=== PATIENT | male | born 1945 | race Caucasian/White ===

== ENCOUNTER 2018-01-20 12:08 | Inpatient (IN) ==
[2018-01-20 13:40] LABS: Bilirubin,Urine Negative (Negative); Clarity,Urine Clear (Clear); Color,Urine Yellow (Yellow); Glucose,Urine (UA) Normal (Normal); Ketones,Urine Negative (Negative); Leukocyte Esterase,Urine Negative (Negative); Nitrite,Urine Negative (Negative); Protein,Urine Negative (Neg-Trace); Specific Gravity,Urine 1.015 (1.010-1.025); Urobilinogen,Urine Normal (Normal)
[2018-01-20 13:41] LABS: Blood,Urine Negative (Negative)
[2018-01-20] MEDS ORDERED: *HR* OxyCODONE Immed Rel 5 MG TABLET PO PRN (18:00)
--- NOTE | 2018-01-20 18:42 | Internal Med History&Physical ---
Date of Encounter: 01/21/18 Time of Encounter: 19:40 Assessment and Plan (1) Status post total hip replacement, right Current visit: Yes Status: Acute here for pt, rt, ot (2) HTN (hypertension) Current visit: Yes Status: Acute he did have some hypotension at [place], will continue to follow. may need to adjust medication. 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 Current visit: Yes Status: Acute will continue with home medication Qualifiers: Associated angina: without angina Qualified Code(s): I25.811 - Atherosclerosis of [place] coronary artery of transplanted heart without angina pectoris (5) Gout Current visit: Yes Status: Acute will continue allopurinol Qualifiers: Gout site: unspecified site Gout etiology: unspecified cause Chronicity: chronic Presence of tophus: without tophus Qualified Code(s): M1A.9XX0 - Chronic gout, unspecified, without tophus (tophi) (6) Inflammatory arthritis Current visit: Yes Status: Acute will continue his home medication. he takes prednisone daily for this will watch for signs of adrenal insuffiency (7) GERD (gastroesophageal reflux disease) Current visit: Yes Status: Acute will continue ppi Qualifiers: Esophagitis presence: esophagitis presence not specified Qualified Code(s) : K21.9 - Gastro-esophageal reflux disease without esophagitis (8) CHF (congestive heart failure) Current visit: Yes Status: Acute will continue home medication. bnp in am he does have pretty significant edema of his lower extremity will obtain a Doppler tomorrow. Qualifiers: Heart failure type: diastolic Heart failure chronicity: chronic Qualified Code(s): I50.32 - Chronic diastolic (congestive) heart failure (9) Sacral decubitus ulcer, stage II Current visit: Yes Status: Acute will dresss this with allevan continue to follow (10) Code status needs review Current visit: Yes Status: Acute He does not want to be full code he is very upset about what happened to his when she had intubated prior to her . He does have a living will have a signed copy she does not want to be intubated he does not want CPR. Internal Medicine - H&P: HPI Chief complaint: here for rehab Admitted From: Direct Admit Plans for Post Hospital Care: Home History of present illness: Mr. Guzmán is a 72 year old male who presents [facility] after he had a right THR for inflammatory arthritis. he is here for pt/ot/rt. plan is to get him back to his home environment. he did have some hypotension prior to admission. his lisinopril was held. on admission here he was on 2 betablockers. will d.c the propanolol. he is on chronic daily prednisone. his bp is better today if low will consider stress dose steroids. He is feeling pretty good he does not have any pain he has not had have any pain medicines since Wednesday morning. He got up to the bathroom had a normal bowel movement does not have any trouble with his balance is not had any nausea or vomiting he has not been dizzy has not been short of breath and forward to getting home. He did have a lengthy discussion about CODE STATUS with he relates a story about his who had a living will and she ended up on a ventilator and she did want to be on the ventilator discussed the difference between the living will and DNR status and he states he does not want CPR he does not want to be intubated and that he has a living will. I discussed the living will is not CODE STATUS is he states he wants to be DNR CC arrest. Past Med Surg Social Fam HX - Past Medical History Medical history: arthritis, CHF, coronary artery disease (History of coronary angioplasty history of CABG, pacer), hyperlipidemia, myocardial infarction, valvular heart disease (AICD, ischemic cardiomyopathy, GOut, chronic back pain, BPH), other (AICD, ischemic cardiomyopathy, ventricular tachycardia, chronic back pain, gout, ED, urge incontinence, BPH,) Additional medical history: gout, tremors, [place] CAD, gerd, BPH Psychiatric history: no psych history - Past Surgical History Surgical History: non-contributory, angioplasty/stent, coronary bypass (CABG) ( 1994), orthopedic, other (Right total hip replacement 2017 carpal tunnel on the left 2 times carpal tunnel on the right x 2, 3 left knee surgeries, back surgery 1985 coccyx removed in 1963, eye surgery 2015), pacemaker/AICD ( Defibrillator 1989 1994), AICD Additional surgical history: back stimulator, back surgery - Social History Smoking Status: Never smoker Smokeless Tobacco Status: No Alcohol use: rarely Drug use: none - Family History Father Living Status: Age at : 45 Hx Family Cardiac Disorders: Yes Hx Family Cancer: Yes Mother Living Status: Age at : 52 Hx Family Cancer: Yes Internal Medicine - H&P: Meds Lisinopril [Zestril] 10 mg PO DAILY 04/29/16 [History] Multivit/Iron/FA/K/Herb No.244 [Alive [employer] Mv Tablet] 1 tab PO DAILY 04/29/16 [History] Pravastatin Sodium [Pravachol] 40 mg PO HS 04/29/16 [History] Allopurinol [Zyloprim 300 MG] 300 mg PO DAILY 11/03/17 [History] Carvedilol 12.5 mg PO BID 11/03/17 [History] Fenofibrate Nanocrystallized [Tricor] 145 mg PO DAILY 11/03/17 [History] Finasteride [Proscar] 5 mg PO DAILY 11/03/17 [History] Shorter-3/Dha/Epa/Fish Oil [Fish Oil 1,000 mg Softgel] 1 tab PO DAILY 11/03/17 [ History] Omeprazole [PriLOSEC] 40 mg PO DAILY 11/03/17 [History] Tamsulosin [Flomax] 0.4 mg PO DAILY 11/03/17 [History] Tofacitinib Citrate [Xeljanz Xr] 11 mg PO DAILY 11/03/17 [History] predniSONE [PredniSONE] 5 mg PO DAILY 11/03/17 [History] sulfaSALAzine [Sulfasalazine] 500 mg PO BID 11/03/17 [History] 3 Allergy/AdvReac Type Severity Reaction Status Date / Time No Known Allergies Allergy Verified 11/03/17 06:49 All Systems PM: A 10-system review of systems was performed and is negative for pertinent findings except as documented above in the HPI. - Constitutional Constitutional: fatigue, no excessive sweating, no fever(s), no falls, no weakness - EENT Eyes: no change in vision Nose, mouth and throat: no sore throat - Cardiovascular Cardiovascular ROS IM: no chest pain, no dyspnea, no lightheadedness, no palpitations, no syncope - Respiratory Respiratory: no cough, no dyspnea on exertion, no wheezing - Gastrointestinal Gastrointestinal: no abdominal pain, no constipation, no diarrhea, no hematemesis, no loose stools, no melena, no nausea, no vomiting - Genitourinary Genitourinary ROS male: no dysuria, no hematuria, no urinary incontinence - Musculoskeletal Musculoskeletal ROS IM: numbness (Except chronic of his first 3 digits on the right hand) - Integumentary Integumentary IM: skin ulcer (There is a skin tear on his right thigh), no pruritus, no rash - Neurological Neurological ROS: tremor(s) - Psychiatric Psychiatric: no depression - Constitutional Vitals: Temp Pulse Resp BP Pulse Ox 98 F 75 15 121/66 99 01/20/18 13:02 01/20/18 13:05 01/20/18 13:05 01/20/18 13:05 01/20/18 13:05 General appearance: Present: A&O X 3, answers questions appropriately. Absent: no acute distress - Head Head exam: Present: atraumatic - Neck Neck exam general surgery: Present: supple, trachea midline. Absent: lymphadenopathy, tenderness - Respiratory Respiratory exam: Present: CTAB - Cardiovascular Cardiovascular exam: Present: RRR, +S1, +S2. Absent: systolic murmur - GI/Abdominal GI/Abdominal exam: Present: normal bowel sounds, soft, no peritoneal signs. Absent: distended, guarding, mass, rebound, tenderness - Extremities Exam Extremities exam: Present: normal capillary refill, pedal edema (Right greater than left), warm - Incison Incision: Present: clean and dry, intact (Of a skin tear just parallel to his incision was about 5 cm long. There is a significant amount of serosanguineous and the little bit of bloody drainage coming from that. There is no erythema. ) - Skin Skin exam: Present: dry (He does have a sacral decub on his buttock were just the skin has split little bit in his gluteal cleft.), warm. Absent: rash Internal Med - H&P Results - Labs CBC & Chem 7: 01/21/18 05:05 01/21/18 05:05 Labs: Urine 01/20/18 Range/Units 13:30 Urine Color Yellow (Yellow) Urine Clarity Clear (Clear) Urine pH 6.0 (5.0-8.0) pH Units Ur Specific [place] 1.015 (1.010-1.025) Urine Protein Negative (Neg-Trace) mg/dL Urine Glucose (UA) Normal (Normal) mg/dL
[2018-01-20] MEDS: sulfaSALAzine 500 MG TABLET PO SCH (21:42)
[2018-01-21] MEDS ORDERED: Ondansetron ODT 4 MG TAB.RAPDIS ONE (03:48)
[2018-01-21] MEDS: *HR* Enoxaparin 40 MG/0.4 ML SYRINGE SQ SCH (06:40)
[2018-01-21] MEDS: predniSONE 5 MG TABLET PO SCH (08:30)
[2018-01-21] MEDS: Aspirin 81 MG TAB.CHEW PO SCH (08:30)
[2018-01-21] MEDS: Multivit/Ca/Min/Fe/FA 1 TAB TABLET PO SCH (08:30)
[2018-01-21] MEDS: Finasteride 5 MG TABLET PO SCH (08:30)
[2018-01-21] MEDS: Fenofibrate 54 MG TABLET PO SCH (08:30)
[2018-01-21] MEDS: Furosemide 40 MG TABLET PO SCH (08:30)
[2018-01-21] MEDS: sulfaSALAzine 500 MG TABLET PO SCH ×2 (08:30→19:54)
[2018-01-21] MEDS: *HR* OxyCODONE Immed Rel 5 MG TABLET PO PRN ×2 (09:00→19:54)
[2018-01-21] MEDS ORDERED: Lisinopril 20 MG TABLET PO SCH (09:00)
[2018-01-21] MEDS: (Omega-3/Dha/Epa/Fish Oil [Fish Oil 1,000 Mg Softgel] PO SCH (11:37)
[2018-01-21] MEDS: (Tofacitinib Citrate [Xeljanz Xr] 11 MG) PO SCH (11:38)
[2018-01-21 13:51] LABS: Basophils % 0.6 %; Eosinophils # 0.1 K/mcL (0.0-0.6); Eosinophils % 1.1 %; Hematocrit 25.6 % (37.5-50.1); Hemoglobin 8.8 g/dL (12.9-16.9); Immature Granulocytes % 0.7 % (0-4); Lymphocytes # 0.8 K/mcL (0.6-4.6); Lymphocytes % 15.3 %; Mean Corpuscular HGB Conc 34.4 g/dL (31.6-35.5); Mean Corpuscular Hemoglobin 35.2 pg (28.0-33.3); Mean Corpuscular Volume 102.4 fL (83.0-100.0); Mean Platelet Volume 10.1 fL (9.4-12.4); Monocytes # 0.9 K/mcL (0.0-1.3); Monocytes % 16.2 %; Neutrophils # 3.6 K/mcL (1.6-8.9); Platelet Count 157 K/mcL (140-400); Red Cell Distribution Width 13.9 % (11.5-14.5); Segmented Neutrophils % 66.1 %
[2018-01-21 13:52] LABS: BUN/Creatinine Ratio 30 (6-26); Blood Urea Nitrogen 25 mg/dL (8-23); Carbon Dioxide 24 mEq/L (23-29); Chloride 104 mEq/L (98-107); Glucose 122 mg/dL (70-105); Osmolality,Calculated 286 (280-300); Potassium 3.4 mEq/L (3.5-5.1); Sodium 135 mEq/L (136-145); eGFR For African Americans > 60 (> 60); eGFR For Non-African Americans > 60 (> 60)
[2018-01-21 13:53] LABS: Calcium 8.7 mg/dL (8.6-10.3)
--- NOTE | 2018-01-21 15:30 | Internal Med Progress Note ---
Date of Encounter: 01/21/18 Time of Encounter: 08:20 - Assessment and plan (1) Status post total hip replacement, right Current Visit: Yes Status: Acute Assessment and plan: He is here for rehabilitation physical therapy occupational therapy and recreational therapy. (2) HTN (hypertension) Current Visit: Yes Status: Acute Assessment and plan: It was low at the outside hospital his home medicines up and started it did get low again so we will put him back off the lisinopril. 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 Qualifiers: Associated angina: without angina Qualified Code(s): I25.811 - Atherosclerosis of [place] coronary artery of transplanted heart without angina pectoris (5) Gout Current Visit: Yes Status: Acute Assessment and plan: He does not have any active gout currently. continue allopurinoll Qualifiers: Gout site: unspecified site Gout etiology: unspecified cause Chronicity: chronic Presence of tophus: without tophus Qualified Code(s): M1A.9XX0 - Chronic gout, unspecified, without tophus (tophi) (6) Inflammatory arthritis Current Visit: Yes Status: Acute Assessment and plan: Continue his home medicine his home dose of prednisone. (7) GERD (gastroesophageal reflux disease) Current Visit: Yes Status: Acute Assessment and plan: Continue his PPI Qualifiers: Esophagitis presence: esophagitis presence not specified Qualified Code(s) : K21.9 - Gastro-esophageal reflux disease without esophagitis (8) CHF (congestive heart failure) Current Visit: Yes Status: Acute Assessment and plan: His BNP was not significantly elevated he is starting on Lasix and AMBER inhibitor or beta joshua will continue these. As his blood pressure tolerates currently other than the edema not having any symptoms of CHF. But his edema has been present for a long time Qualifiers: Heart failure type: diastolic Heart failure chronicity: chronic Qualified Code(s): I50.32 - Chronic diastolic (congestive) heart failure (9) Nausea Current Visit: Yes Status: Acute Assessment and plan: He did receive his a Zofran dose which did not provide him any significant relief. He has not had narcotics in 48 hours a thinking that this is most likely cause for his nausea for his headache. We will continue to monitor this. Discussed that these symptoms peak at 72 hours. He is currently cardiovascularly stable. He does not have an acute abdomen his urinalysis looked negative he does not have any current cardiac symptoms will continue to monitor this and provide supportive care. - Subjective Interval history: He is having a good bit of nausea that started early this morning. He did eat his for breakfast he has not had any emesis he did get a dose of Zofran which she did not seem to feel helped him very much. He has had a headache just is not feeling up to par he has not had any diarrhea he has not had any belly pain he denies chest pain he denies shortness of breath. He does not have any pain in his hip. He has last dose of narcotics was on Wednesday prior to arriving here he has about 48 hours from his last narcotic he was taking oxycodone on a regular basis prior to coming in. But he has declined its use since he no longer has hip pain. Denies dysuria or urinary frequency or incontinence. - Constitutional Vitals: Temp Pulse Resp BP Pulse Ox 98.3 F 78 16 123/78 95 01/21/18 07:00 01/21/18 07:00 01/21/18 07:00 01/21/18 07:00 01/21/18 07:00 General appearance: Present: A&O X 3, answers questions appropriately. Absent: no acute distress (Appear mildly ill) - Head Head exam: Present: atraumatic, normocephalic - Neck Neck exam general surgery: Present: supple, trachea midline. Absent: lymphadenopathy, tenderness - Respiratory Respiratory exam: Present: CTAB - Cardiovascular Cardiovascular exam: Present: RRR, +S1, +S2. Absent: systolic murmur - GI/Abdominal GI/Abdominal exam: Present: normal bowel sounds, soft. Absent: distended, guarding, mass, tenderness, no peritoneal signs - Extremities Exam Extremities exam: Present: normal capillary refill, pedal edema (Right Foot greater than left foot), warm. Absent: mottling - Incison Incision: Present: clean and dry, intact. Absent: erythema (He does have a skin tear that is still having a lot of serosanguineous drainage from both low his incision. There is no erythema of the area no purulent drainage) - Skin Skin exam: Present: dry, warm. Absent: rash Internal Medicine: Result - Labs CBC & Chem 7: 01/21/18 05:05 01/21/18 05:05 Labs: Short CBC 01/21/18 Range/Units 05:05 WBC 5.4 (4.3-11.1) K/mcL Hgb 8.8 L (12.9-16.9) g/dL Hct 25.6 L (37.5-50.1) % Plt Count 157 (140-400) K/mcL Neutrophils # 3.6 (1.6-8.9) K/mcL BMP 01/21/18 05:05 Sodium 135 L Potassium 3.4 L Chloride 104 Carbon Dioxide 24 BUN 25 H Creatinine 0.83 Glucose 122 H Calcium 8.7 - VTE Documentation of Mechanical Device: Graduated compression elastic hosiery Consult Discharge Plan - Plan Referrals: Gely Stringer, GROUP ART SUPERVISOR [Primary Care Provider] -
[2018-01-21] MEDS ORDERED: predniSONE 20 MG TABLET PO ONE (15:33)
[2018-01-22 05:34] LABS: Basophils % 0.2 %; Hematocrit 25.8 % (37.5-50.1); Hemoglobin 8.8 g/dL (12.9-16.9); Lymphocytes # 0.6 K/mcL (0.6-4.6); Lymphocytes % 9.8 %; Mean Corpuscular HGB Conc 34.1 g/dL (31.6-35.5); Mean Corpuscular Hemoglobin 35.1 pg (28.0-33.3); Mean Corpuscular Volume 102.8 fL (83.0-100.0); Mean Platelet Volume 9.7 fL (9.4-12.4); Monocytes # 0.7 K/mcL (0.0-1.3); Monocytes % 12.2 %; Neutrophils # 4.5 K/mcL (1.6-8.9); Platelet Count 186 K/mcL (140-400); Red Blood Count 2.51 M/mcL (4.19-5.50); Red Cell Distribution Width 13.9 % (11.5-14.5); Segmented Neutrophils % 76.8 %
[2018-01-22 05:47] LABS: BUN/Creatinine Ratio 29 (6-26); Blood Urea Nitrogen 27 mg/dL (8-23); Calcium 8.8 mg/dL (8.6-10.3); Carbon Dioxide 26 mEq/L (23-29); Chloride 103 mEq/L (98-107); Glucose 140 mg/dL (70-105); Osmolality,Calculated 291 (280-300); Potassium 3.9 mEq/L (3.5-5.1); Sodium 137 mEq/L (136-145); eGFR For African Americans > 60 (> 60); eGFR For Non-African Americans > 60 (> 60)
[2018-01-22] MEDS: *HR* Enoxaparin 40 MG/0.4 ML SYRINGE SQ SCH (06:04)
[2018-01-22] MEDS: predniSONE 5 MG TABLET PO SCH (08:26)
[2018-01-22] MEDS: Finasteride 5 MG TABLET PO SCH (08:26)
[2018-01-22] MEDS: Multivit/Ca/Min/Fe/FA 1 TAB TABLET PO SCH (08:26)
[2018-01-22] MEDS: Fenofibrate 54 MG TABLET PO SCH (08:26)
[2018-01-22] MEDS: sulfaSALAzine 500 MG TABLET PO SCH ×2 (08:26→21:44)
[2018-01-22] MEDS: Furosemide 40 MG TABLET PO SCH (08:26)
[2018-01-22] MEDS: Aspirin 81 MG TAB.CHEW PO SCH (08:32)
[2018-01-22] MEDS: (Omega-3/Dha/Epa/Fish Oil [Fish Oil 1,000 Mg Softgel] PO SCH (08:34)
[2018-01-22] MEDS: (Tofacitinib Citrate [Xeljanz Xr] 11 MG) PO SCH (08:35)
--- NOTE | 2018-01-22 13:29 | Internal Med Progress Note ---
Date of Encounter: 01/22/18 Time of Encounter: 13:27 - Assessment and plan (1) Status post total hip replacement, right Current Visit: Yes Status: Acute Assessment and plan: He is here for rehabilitation physical therapy occupational therapy and recreational therapy. (2) HTN (hypertension) Current Visit: Yes Status: Acute Assessment and plan: It was low it is better with holding the lisinopril will continue to follow. 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 Qualifiers: Associated angina: without angina Qualified Code(s): I25.811 - Atherosclerosis of [place] coronary artery of transplanted heart without angina pectoris (5) Gout Current Visit: Yes Status: Acute Assessment and plan: He does not have any active gout currently. continue allopurinoll Qualifiers: Gout site: unspecified site Gout etiology: unspecified cause Chronicity: chronic Presence of tophus: without tophus Qualified Code(s): M1A.9XX0 - Chronic gout, unspecified, without tophus (tophi) (6) Inflammatory arthritis Current Visit: Yes Status: Acute Assessment and plan: Continue his home medicine his home dose of prednisone.he did get an extra dose of 60 yesterday (7) GERD (gastroesophageal reflux disease) Current Visit: Yes Status: Acute Assessment and plan: Continue his PPI Qualifiers: Esophagitis presence: esophagitis presence not specified Qualified Code(s) : K21.9 - Gastro-esophageal reflux disease without esophagitis (8) CHF (congestive heart failure) Current Visit: Yes Status: Acute Assessment and plan: His BNP was not significantly elevated he is currently on Lasix and beta joshua will continue these. As his blood pressure tolerates currently other than the edema not having any symptoms of CHF. But his edema has been present for a long time. had to hold the acei due to low bp Qualifiers: Heart failure type: diastolic Heart failure chronicity: chronic Qualified Code(s): I50.32 - Chronic diastolic (congestive) heart failure (9) Sacral decubitus ulcer, stage II Current Visit: Yes Status: Acute (10) Code status needs review Current Visit: Yes Status: Acute - Subjective Interval history: he has not had the nausea that he was having yesterday he has not had any diarrhea he has not had any belly pain he denies chest pain he denies shortness of breath. He does not have any pain in his hip. he did have some oxycodone yesterday for his headache. took a shower today Denies dysuria or urinary frequency or incontinence. - Constitutional Vitals: Temp Pulse Resp BP Pulse Ox 98.4 F 74 16 104/69 98 01/22/18 07:47 01/22/18 07:47 01/22/18 07:47 01/22/18 07:47 01/22/18 07:47 General appearance: Present: A&O X 3, answers questions appropriately. Absent: no acute distress - Head Head exam: Present: atraumatic, normocephalic - Neck Neck exam general surgery: Present: normal inspection, supple, trachea midline. Absent: lymphadenopathy - Respiratory Respiratory exam: Present: CTAB - Cardiovascular Cardiovascular exam: Present: RRR, +S1, +S2. Absent: systolic murmur - GI/Abdominal GI/Abdominal exam: Present: normal bowel sounds, soft, no peritoneal signs. Absent: distended, guarding, tenderness - Extremities Exam Extremities exam: Present: pedal edema. Absent: cyanotic - Incison Incision: Present: clean and dry, intact (skin rear posterior to the incision) - Skin Skin exam: Present: dry, warm. Absent: rash Internal Medicine: Result - Labs CBC & Chem 7: 01/22/18 05:10 01/22/18 05:10 Labs: Short CBC 01/21/18 01/22/18 Range/Units 05:05 05:10 WBC 5.4 5.9 (4.3-11.1) K/mcL Hgb 8.8 L 8.8 L (12.9-16.9) g/dL Hct 25.6 L 25.8 L (37.5-50.1) % Plt Count 157 186 (140-400) K/mcL Neutrophils # 3.6 4.5 (1.6-8.9) K/mcL BMP 01/21/18 01/22/18 05:05 05:10 Sodium 135 L 137 Potassium 3.4 L 3.9 Chloride 104 103 Carbon Dioxide 24 26 BUN 25 H 27 H Creatinine 0.83 0.94 Glucose 122 H 140 H Calcium 8.7 8.8 - VTE Documentation of Mechanical Device: Graduated compression elastic hosiery Consult Discharge Plan - Plan Referrals: Gely Stringer, CHECK GRADER [Primary Care Provider] -
[2018-01-23] MEDS: *HR* Enoxaparin 40 MG/0.4 ML SYRINGE SQ SCH (05:58)
[2018-01-23] MEDS: sulfaSALAzine 500 MG TABLET PO SCH ×2 (08:53→22:47)
[2018-01-23] MEDS: Furosemide 40 MG TABLET PO SCH (08:53)
[2018-01-23] MEDS: predniSONE 5 MG TABLET PO SCH (08:53)
[2018-01-23] MEDS: Aspirin 81 MG TAB.CHEW PO SCH (08:53)
[2018-01-23] MEDS: Fenofibrate 54 MG TABLET PO SCH (08:53)
[2018-01-23] MEDS: (Omega-3/Dha/Epa/Fish Oil [Fish Oil 1,000 Mg Softgel] PO SCH (08:54)
[2018-01-23] MEDS: Finasteride 5 MG TABLET PO SCH (08:54)
[2018-01-23] MEDS: Multivit/Ca/Min/Fe/FA 1 TAB TABLET PO SCH (08:54)
[2018-01-23] MEDS: (Tofacitinib Citrate [Xeljanz Xr] 11 MG) PO SCH (08:54)
--- NOTE | 2018-01-23 11:53 | Internal Med Progress Note ---
Date of Encounter: 01/24/18 Time of Encounter: 11:51 - Assessment and plan (1) Status post total hip replacement, right Current Visit: Yes Status: Acute Assessment and plan: He is here for rehabilitation physical therapy occupational therapy and recreational therapy. (2) HTN (hypertension) Current Visit: Yes Status: Acute Assessment and plan: It was low it is better with holding the lisinopril will continue to follow. 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 Qualifiers: Associated angina: without angina Qualified Code(s): I25.811 - Atherosclerosis of [place] coronary artery of transplanted heart without angina pectoris (5) Gout Current Visit: Yes Status: Acute Assessment and plan: He does not have any active gout currently. continue allopurinoll Qualifiers: Gout site: unspecified site Gout etiology: unspecified cause Chronicity: chronic Presence of tophus: without tophus Qualified Code(s): M1A.9XX0 - Chronic gout, unspecified, without tophus (tophi) (6) Inflammatory arthritis Current Visit: Yes Status: Acute Assessment and plan: Continue his home medicine his home dose of prednisone.he did get an extra dose of 60 yesterday (7) GERD (gastroesophageal reflux disease) Current Visit: Yes Status: Acute Assessment and plan: Continue his PPI Qualifiers: Esophagitis presence: esophagitis presence not specified Qualified Code(s) : K21.9 - Gastro-esophageal reflux disease without esophagitis (8) CHF (congestive heart failure) Current Visit: Yes Status: Acute Assessment and plan: His BNP was not significantly elevated he is currently on Lasix and beta joshua will continue these. As his blood pressure tolerates currently other than the edema not having any symptoms of CHF. But his edema has been present for a long time. had to hold the acei due to low bp Qualifiers: Heart failure type: diastolic Heart failure chronicity: chronic Qualified Code(s): I50.32 - Chronic diastolic (congestive) heart failure (9) Sacral decubitus ulcer, stage II Current Visit: Yes Status: Acute (10) Code status needs review Current Visit: Yes Status: Acute - Subjective Interval history: he has not had the nausea he has not had any belly pain he denies chest pain he denies shortness of breath. He does not have any pain in his hip. Denies dysuria or urinary frequency or incontinence.he does have diarrhea, started yesterday. - Constitutional Vitals: Temp Pulse Resp BP Pulse Ox 98.4 F 72 16 125/75 96 01/23/18 07:00 01/23/18 07:00 01/22/18 19:00 01/23/18 07:00 01/23/18 07:00 General appearance: Present: A&O X 3, answers questions appropriately. Absent: no acute distress Internal Medicine: Result - Labs CBC & Chem 7: 01/22/18 05:10 01/22/18 05:10 - VTE Documentation of Mechanical Device: Graduated compression elastic hosiery Consult Discharge Plan - Plan Referrals: Gely Stringer OY[employer] UNLOADER [Primary Care Provider] -
[2018-01-24] MEDS: *HR* Enoxaparin 40 MG/0.4 ML SYRINGE SQ SCH (06:55)
[2018-01-24] MEDS: sulfaSALAzine 500 MG TABLET PO SCH ×2 (08:20→20:20)
[2018-01-24] MEDS: Fenofibrate 54 MG TABLET PO SCH (08:20)
[2018-01-24] MEDS: Aspirin 81 MG TAB.CHEW PO SCH (08:20)
[2018-01-24] MEDS: Furosemide 40 MG TABLET PO SCH (08:21)
[2018-01-24] MEDS: predniSONE 5 MG TABLET PO SCH (08:21)
[2018-01-24] MEDS: Finasteride 5 MG TABLET PO SCH (08:21)
[2018-01-24] MEDS: Multivit/Ca/Min/Fe/FA 1 TAB TABLET PO SCH (08:21)
[2018-01-24] MEDS: (Omega-3/Dha/Epa/Fish Oil [Fish Oil 1,000 Mg Softgel] PO SCH (08:23)
[2018-01-24] MEDS: (Tofacitinib Citrate [Xeljanz Xr] 11 MG) PO SCH (08:23)
--- NOTE | 2018-01-24 12:45 | Internal Med Progress Note ---
Date of Encounter: 01/24/18 Time of Encounter: 12:45 - Assessment and plan (1) Status post total hip replacement, right Current Visit: Yes Status: Acute Assessment and plan: He is here for rehabilitation physical therapy occupational therapy and recreational therapy., he wants to get home will d/c when he meets goals. having diarrhea likely related to narcotic withdrawl (2) HTN (hypertension) Current Visit: Yes Status: Acute Assessment and plan: It was low it is better with holding the lisinopril will continue to follow. 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 Qualifiers: Associated angina: without angina Qualified Code(s): I25.811 - Atherosclerosis of [place] coronary artery of transplanted heart without angina pectoris (5) Gout Current Visit: Yes Status: Acute Assessment and plan: He does not have any active gout currently. continue allopurinoll Qualifiers: Gout site: unspecified site Gout etiology: unspecified cause Chronicity: chronic Presence of tophus: without tophus Qualified Code(s): M1A.9XX0 - Chronic gout, unspecified, without tophus (tophi) (6) Inflammatory arthritis Current Visit: Yes Status: Acute Assessment and plan: Continue his home medicine his home dose of prednisone.he did get an extra dose of 60 yesterday (7) GERD (gastroesophageal reflux disease) Current Visit: Yes Status: Acute Assessment and plan: Continue his PPI Qualifiers: Esophagitis presence: esophagitis presence not specified Qualified Code(s) : K21.9 - Gastro-esophageal reflux disease without esophagitis (8) CHF (congestive heart failure) Current Visit: Yes Status: Acute Assessment and plan: His BNP was not significantly elevated he is currently on Lasix and beta joshua will continue these. As his blood pressure tolerates currently other than the edema not having any symptoms of CHF. But his edema has been present for a long time. had to hold the acei due to low bp Qualifiers: Heart failure type: diastolic Heart failure chronicity: chronic Qualified Code(s): I50.32 - Chronic diastolic (congestive) heart failure (9) Sacral decubitus ulcer, stage II Current Visit: Yes Status: Acute (10) Code status needs review Current Visit: Yes Status: Acute - Subjective Interval history: he has not had the nausea he has not had any belly pain he denies chest pain he denies shortness of breath. He does not have any pain in his hip. Denies dysuria or urinary frequency or incontinence.he does have diarrhea he told me 10 to 11 times told the nures 5 to 6 times . documented 4 times since yesterday. tech said small amount. no abd pain he is anxious to go home - Constitutional Vitals: Temp Pulse Resp BP Pulse Ox 98.3 F 55 16 128/73 96 01/24/18 07:17 01/24/18 07:17 01/24/18 07:17 01/24/18 07:17 01/23/18 19:30 General appearance: Present: A&O X 3, answers questions appropriately. Absent: no acute distress - Head Head exam: Present: atraumatic, normocephalic - Neck Neck exam general surgery: Present: normal inspection, supple, trachea midline. Absent: lymphadenopathy - Respiratory Respiratory exam: Present: CTAB - Cardiovascular Cardiovascular exam: Present: RRR, +S1, +S2. Absent: systolic murmur - GI/Abdominal GI/Abdominal exam: Present: normal bowel sounds, soft, no peritoneal signs. Absent: distended, mass, tenderness - Extremities Exam Extremities exam: Present: pedal edema - Incison Incision: Present: clean and dry, intact (still with skin tean posterior to the incision still with blood and serosang d/c) Internal Medicine: Result - Labs CBC & Chem 7: 01/22/18 05:10 01/22/18 05:10 - VTE Documentation of Mechanical Device: Graduated compression elastic hosiery Consult Discharge Plan - Plan Referrals: Gely Stringer CNP [Primary Care Provider] -
[2018-01-25] MEDS: *HR* Enoxaparin 40 MG/0.4 ML SYRINGE SQ SCH (04:18)
[2018-01-25] MEDS: Fenofibrate 54 MG TABLET PO SCH (08:18)
[2018-01-25] MEDS: (Omega-3/Dha/Epa/Fish Oil [Fish Oil 1,000 Mg Softgel] PO SCH (08:19)
[2018-01-25] MEDS: Furosemide 40 MG TABLET PO SCH (08:19)
[2018-01-25] MEDS: Finasteride 5 MG TABLET PO SCH (08:19)
[2018-01-25] MEDS: sulfaSALAzine 500 MG TABLET PO SCH ×2 (08:19→19:43)
[2018-01-25] MEDS: predniSONE 5 MG TABLET PO SCH (08:19)
[2018-01-25] MEDS: Aspirin 81 MG TAB.CHEW PO SCH (08:19)
[2018-01-25] MEDS: Multivit/Ca/Min/Fe/FA 1 TAB TABLET PO SCH (08:19)
[2018-01-25] MEDS: (Tofacitinib Citrate [Xeljanz Xr] 11 MG) PO SCH (08:20)
[2018-01-25] MEDS: *HR* OxyCODONE Immed Rel 5 MG TABLET PO PRN (20:47)
[2018-01-26] MEDS: *HR* Enoxaparin 40 MG/0.4 ML SYRINGE SQ SCH (05:24)
[2018-01-26] MEDS: Fenofibrate 54 MG TABLET PO SCH (08:09)
[2018-01-26] MEDS: Multivit/Ca/Min/Fe/FA 1 TAB TABLET PO SCH (08:10)
[2018-01-26] MEDS: Aspirin 81 MG TAB.CHEW PO SCH (08:10)
[2018-01-26] MEDS: Furosemide 40 MG TABLET PO SCH (08:10)
[2018-01-26] MEDS: sulfaSALAzine 500 MG TABLET PO SCH ×2 (08:10→19:59)
[2018-01-26] MEDS: (Tofacitinib Citrate [Xeljanz Xr] 11 MG) PO SCH (08:11)
[2018-01-26] MEDS: predniSONE 5 MG TABLET PO SCH (08:11)
[2018-01-26] MEDS: Finasteride 5 MG TABLET PO SCH (08:11)
--- NOTE | 2018-01-26 13:56 | Internal Med Progress Note ---
Date of Encounter: 01/26/18 Time of Encounter: 13:54 - Assessment and plan (1) Status post total hip replacement, right Current Visit: Yes Status: Acute Assessment and plan: He is here for rehabilitation physical therapy occupational therapy and recreational therapy., he wants to get home will d/c when he meets goals. likely d/c tomorrow (2) HTN (hypertension) Current Visit: Yes Status: Acute Assessment and plan: It was low it is better with holding the lisinopril will continue to follow. 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 continue allopurinoll Qualifiers: Gout site: unspecified site Gout etiology: unspecified cause Chronicity: chronic Presence of tophus: without tophus Qualified Code(s): M1A.9XX0 - Chronic gout, unspecified, without tophus (tophi) (6) Inflammatory arthritis Current Visit: Yes Status: Acute Assessment and plan: Continue his home medicine his home dose of prednisone.he did get an extra dose of 60 yesterday (7) GERD (gastroesophageal reflux disease) Current Visit: Yes Status: Acute Assessment and plan: Continue his PPI Qualifiers: Esophagitis presence: esophagitis presence not specified Qualified Code(s) : K21.9 - Gastro-esophageal reflux disease without esophagitis (8) CHF (congestive heart failure) Current Visit: Yes Status: Acute Assessment and plan: His BNP was not significantly elevated he is currently on Lasix and beta joshua will continue these. As his blood pressure tolerates currently other than the edema not having any symptoms of CHF. But his edema has been present for a long time. had to hold the acei due to low bp Qualifiers: Heart failure type: diastolic Heart failure chronicity: chronic Qualified Code(s): I50.32 - Chronic diastolic (congestive) heart failure (9) Sacral decubitus ulcer, stage II Current Visit: Yes Status: Acute (10) Code status needs review Current Visit: Yes Status: Acute - Subjective Interval history: he has not had any belly pain he denies chest pain he denies shortness of breath. He does not have any pain in his hip. Denies dysuria or urinary frequency or incontinence.he ddenies diarrhea . . no abd pain he is anxious to go home - Constitutional Vitals: Temp Pulse Resp BP Pulse Ox 99.0 F 77 21 112/67 93 01/26/18 07:36 01/26/18 07:36 01/26/18 07:36 01/26/18 07:36 01/26/18 07:36 General appearance: Present: A&O X 3, answers questions appropriately. Absent: no acute distress - Head Head exam: Present: atraumatic, normocephalic - Neck Neck exam general surgery: Present: normal inspection, supple, trachea midline. Absent: lymphadenopathy - Respiratory Respiratory exam: Present: CTAB - Cardiovascular Cardiovascular exam: Present: RRR, +S1, +S2. Absent: systolic murmur - GI/Abdominal GI/Abdominal exam: Present: normal bowel sounds, soft, no peritoneal signs. Absent: distended, guarding - Extremities Exam Extremities exam: Present: normal capillary refill (anne winters), pedal edema - Incison Incision: Present: serosanguinous - Skin Skin exam: Present: dry, warm. Absent: rash Internal Medicine: Result - Labs CBC & Chem 7: 01/22/18 05:10 01/22/18 05:10 - VTE Documentation of Mechanical Device: Graduated compression elastic hosiery Consult Discharge Plan - Plan Referrals: Gely Stringer PSYCHOLOGICAL OPERATIONS OFFICER [Primary Care Provider] -
--- NOTE | 2018-01-26 14:03 | Discharge Summary ---
Date of Encounter: 01/27/18 Time of Encounter: 08:30 - Discharge Diagnosis (1) Status post total hip replacement, right Priority: Primary Status: Acute Comments: He was here for rehabilitation he saw PT OT physical medicine and rehabilitation to progress to medicine goals was felt safe to be discharged home with a walker. He was sent home in stable condition he will have home health as an outpatient with home physical therapy. 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 Qualifiers: Associated angina: without angina Qualified Code(s): I25.811 - Atherosclerosis of [place] coronary artery of transplanted heart without angina pectoris (5) Gout Priority: Secondary Status: Acute Comments: Not have any symptoms about this admission Qualifiers: Gout site: unspecified site Gout etiology: unspecified cause Chronicity: chronic Presence of tophus: without tophus Qualified Code(s): M1A.9XX0 - Chronic gout, unspecified, without tophus (tophi) (6) Inflammatory arthritis Priority: Secondary Status: Acute Comments: He remained on his home medications he does not have any flares of this this admission. (7) GERD (gastroesophageal reflux disease) Priority: Secondary Status: Acute Comments: He did not have any complaints with that this admission. Qualifiers: Esophagitis presence: esophagitis presence not specified Qualified Code(s) : K21.9 - Gastro-esophageal reflux disease without esophagitis (8) CHF (congestive heart failure) Priority: Secondary Status: Acute Comments: His legs remain quite swollen he is on diuretic. His blood pressure did not tolerate an AMBER inhibitor. He did see wound care they did schedule follow-up for possible home Unna boots Qualifiers: Heart failure type: diastolic Heart failure chronicity: chronic Qualified Code(s): I50.32 - Chronic diastolic (congestive) heart failure (9) Sacral decubitus ulcer, stage II Priority: Secondary Status: Acute Comments: The allevan was put on the day of discharge the skin was healed over it was only erythematous. (10) Code status needs review Priority: Secondary Status: Acute Comments: He was DNR at this admission he did not want to be intubated or have CPR due to a poor experience with his when she Hospital course: Mr. Guzmán is a 72 year old male Who came to the hospital for rehabilitation after he had a right total hip replacement. PT OT PMR was consult that he progressed met his goals he was felt safe to be at home he was walking with a walker he was doing his ADLs. He was does have a caregiver who lives with him. He was not having any pain he did not have pain medicines while he was here he was not sent home on any additional pain medication. He did have some low blood pressures when he is taking some vessel lisinopril this was held and his blood pressures remained stable. He did have some diarrhea the second day that he came to us this is about 72 hours after his last dose of narcotic pain medicine. He had been taking narcotic pain medicine on a regular basis prior to admission to the hospital after he had his hip replaced he did not have any pain and did not feel the further need for pain medicine he did have some nausea he did have some chills he did have some diarrhea after that. That did resolve by the time that he went home his bowels are working normally. He felt pretty good. He was sent home with any narcotic pain medicine. Also his Flexeril was weaned and he did not receive any hospital too - Time Spent with Patient Total time spent providing and/or coordinating discharge services: - Discharge Medications Home Medications: Multivit/Iron/FA/K/Herb No.244 [Alive [employer] Energy Mv Tablet] 1 tab PO DAILY 04/29/16 [History] Pravastatin Sodium [Pravachol] 40 mg PO HS 04/29/16 [History] Allopurinol [Zyloprim 300 MG] 300 mg PO DAILY 11/03/17 [History] Carvedilol 12.5 mg PO BID 11/03/17 [History] Fenofibrate Nanocrystallized [Tricor] 145 mg PO DAILY 11/03/17 [History] Finasteride [Proscar] 5 mg PO DAILY 11/03/17 [History] [place]-3/Dha/Epa/Fish Oil [Fish Oil 1,000 mg Softgel] 1 tab PO DAILY 11/03/17 [ History] Omeprazole [PriLOSEC] 40 mg PO DAILY 11/03/17 [History] Tamsulosin [Flomax] 0.4 mg PO DAILY 11/03/17 [History] Tofacitinib Citrate [Xeljanz Xr] 11 mg PO DAILY 11/03/17 [History] predniSONE [PredniSONE] 5 mg PO DAILY 11/03/17 [History] sulfaSALAzine [Sulfasalazine] 500 mg PO BID 11/03/17 [History] Aspirin 81 mg PO DAILY tab.chew 01/26/18 [Rx] Ferrous Sulfate 325 mg PO TIDWM tablet 01/26/18 [Rx] Furosemide [Lasix] 40 mg PO DAILY tablet 01/26/18 [Rx] Allergies/Adverse Reactions: 3 Allergy/AdvReac Type Severity Reaction Status Date / Time No Known Allergies Allergy Verified 11/03/17 06:49 Date of admission: 01/20/18 12:08 Primary care physician: Gely Stringer CNP Consults: 01/20/18 12:40 Consult to Occupational Therapy [CONS] Routine Comment: Evaluate, develop and implement POC Reason for Consult: eval Does patient have active BEDREST order?: Yes Is patient medically & hemodynamically stable?: No Consult to Physical Medicine/Rehab [CONS] Routine Reason for Consult: eval rtkr Time Notified: 12:42 Call Completed: Yes Consult to Physical Therapy [CONS] Routine Comment: Evaluate, develop and implement POC Reason for Consult: eval Does patient have active BEDREST order?: No Is patient medically & hemodynamically stable?: Yes Consult to Recreational Therapy [CONS] Routine Comment: Evaluate, develop and implement POC Consult to Pathology Technologist [CONS] Routine Reason for SW Consult: d/c planning 01/25/18 12:54 Consult to Wound Care [CONS] Routine Reason for Consult: bilateral unna boots d/t chronic BLE edema Time Notified: 13:00 Call Completed: Yes - Constitutional Vitals: Temp Pulse Resp BP Pulse Ox 99.0 F 77 21 112/67 93 01/26/18 07:36 01/26/18 07:36 01/26/18 07:36 01/26/18 07:36 01/26/18 07:36 General appearance: Present: A&O X 3, answers questions appropriately. Absent: no acute distress - Head Head exam: Present: atraumatic, normocephalic - Neck Neck exam general surgery: Present: normal inspection, supple, trachea midline. Absent: lymphadenopathy, tenderness - Respiratory Respiratory exam: Present: CTAB - Cardiovascular Cardiovascular exam: Present: RRR, +S1, +S2. Absent: systolic murmur - GI/Abdominal GI/Abdominal exam: Present: normal bowel sounds, soft, no peritoneal signs. Absent: distended, guarding, mass - Extremities Exam Extremities exam: Present: pedal edema, warm. Absent: mottling - Incison Incision: Present: clean and dry (but does have the skin tearposterior to the incision still with serosang d/c) - Skin Skin exam: Present: dry (sacral decub healing with allevan. skin intact now just mild redness), rash, warm - Patient Status Disposition: Home Health Service Condition: Good Functional capacity at discharge: uses cane/walker Overall status at discharge: patient is progressing back to baseline - Discharge Instructions Instructions: Heart Failure (DC), Chronic Hypertension (DC) Follow Up With: Beth Allen MD [Partnered Physician] - 02/03/18 3:00 pm Gely Stringer CNP [Primary Care Provider] - Abner Alvarado MD [Non-Partnered Physician] - 02/01/18 8:45 am - Diet and Activity Activity: ambulate only with your walker, as per physical therapy Diet: low fat, low cholesterol, low salt diet - VTE Documentation of Mechanical Device: Graduated compression elastic hosiery
[2018-01-26] MEDS: *HR* OxyCODONE Immed Rel 5 MG TABLET PO PRN (19:59)
--- NOTE | 2018-01-26 20:51 | Physcial Medicine-Consult Note ---
Date of Encounter: 01/26/18 Time of Encounter: 14:00 Physical Medicine - AP (1) Status post total hip replacement, right Status: Acute Assessment and plan: Good progress on rehab. Discharge planning. Code(s): Z96.641 - Presence of right artificial hip joint SNOMED Code(s): 958769165352 (2) Sacral decubitus ulcer, stage II Status: Acute Assessment and plan: Reenforced the importance of pressure relief and local care post discharge. Code(s): L89.152 - Pressure ulcer of sacral region, stage 2 SNOMED Code(s): 887720500 Physical Medicine - HPI - Data of Consult Requesting Physician: Beth Allen MD Primary Care Provider: Gely Stringer CNP - Consult Narrative History of present illness: Mr. Guzmán is a 72 year old RH male s/p elective right THR for OA. He has dine well on rehab unit. He knows his hip precautions. He is eating well and moving his bowels. He denies hip pain or distal RLE numbness. He feels steady on his walker. He is unable to sleep in a bed and uses a recliner here and at home prior. This is part of the reason for the stage 2 buttock gluteal cleft decubitus ulcer. He has a gel cushion at home. CC: Beth Allen MD Past Med Surg Social Fam HX - Past Medical History Attestation: Yes The following information was validated with the patient. Medical history: arthritis, CHF, coronary artery disease (History of coronary angioplasty history of CABG, pacer), hyperlipidemia, myocardial infarction, valvular heart disease (AICD, ischemic cardiomyopathy, GOut, chronic back pain, BPH), other (AICD, ischemic cardiomyopathy, ventricular tachycardia, chronic back pain, gout, ED, urge incontinence, BPH,) Additional medical history: gout, tremors, [place] CAD, gerd, BPH Psychiatric history: no psych history - Past Surgical History Surgical History: non-contributory, angioplasty/stent, coronary bypass (CABG) ( 1994), orthopedic, other (Right total hip replacement 2017 carpal tunnel on the left 2 times carpal tunnel on the right x 2, 3 left knee surgeries, back surgery 1985 coccyx removed in 1963, eye surgery 2015), pacemaker/AICD ( Defibrillator 1989 1994), AICD Additional surgical history: back stimulator, back surgery - Social History Smoking Status: Never smoker Smokeless Tobacco Status: No Alcohol use: rarely Drug use: none - Family History Father Living Status: Age at : 45 Hx Family Cardiac Disorders: Yes Hx Family Cancer: Yes Mother Living Status: Age at : 52 Hx Family Cancer: Yes Medications and Allergies Multivit/Iron/FA/K/Herb No.244 [Alive Women's Energy Mv Tablet] 1 tab PO DAILY 04/29/16 [History] Pravastatin Sodium [Pravachol] 40 mg PO HS 04/29/16 [History] Allopurinol [Zyloprim 300 MG] 300 mg PO DAILY 11/03/17 [History] Carvedilol 12.5 mg PO BID 11/03/17 [History] Fenofibrate Nanocrystallized [Tricor] 145 mg PO DAILY 11/03/17 [History] Finasteride [Proscar] 5 mg PO DAILY 11/03/17 [History] [place]-3/Dha/Epa/Fish Oil [Fish Oil 1,000 mg Softgel] 1 tab PO DAILY 11/03/17 [ History] Omeprazole [PriLOSEC] 40 mg PO DAILY 11/03/17 [History] Tamsulosin [Flomax] 0.4 mg PO DAILY 11/03/17 [History] Tofacitinib Citrate [Xeljanz Xr] 11 mg PO DAILY 11/03/17 [History] predniSONE [PredniSONE] 5 mg PO DAILY 11/03/17 [History] sulfaSALAzine [Sulfasalazine] 500 mg PO BID 11/03/17 [History] Aspirin 81 mg PO DAILY tab.chew 01/26/18 [Rx] Ferrous Sulfate 325 mg PO TIDWM tablet 01/26/18 [Rx] Furosemide [Lasix] 40 mg PO DAILY tablet 01/26/18 [Rx] 3 Allergy/AdvReac Type Severity Reaction Status Date / Time No Known Allergies Allergy Verified 11/03/17 06:49 All systems: reviewed and no additional remarkable complaints except as stated Physical Medicine - Exam - Constitutional Vitals: Temp Pulse Resp BP Pulse Ox 98.8 F 80 17 102/62 96 01/26/18 18:57 01/26/18 18:57 01/26/18 18:57 01/26/18 18:57 01/26/18 18:57 General appearance: average body habitus, cooperative, no acute distress - Head Head exam: Present: atraumatic, normocephalic - Eye Eye exam: Present: EOMI - ENT ENT exam: Present: mucous membranes moist, normal oropharynx - Neck Neck exam: Present: full ROM - Respiratory Respiratory exam: Present: CTAB - Cardiovascular Cardiovascular exam: Present: RRR - GI/Abdominal GI/Abdominal exam: Present: normal bowel sounds, soft - Extremities Exam Extremities exam: Absent: calf tenderness Additional comments: Right hip antigravity flexion - Neurological Exam Neurological exam: Present: alert, oriented X3, reflexes normal, strengths equal and symetr throughout. Absent: motor sensory deficit - Psychiatric Psychiatric exam: Present: normal affect, normal mood - Skin Additional comments: Right hip incision Physical Medicine - Results - Labs CBC & Chem 7: 01/22/18 05:10 01/22/18 05:10 Labs: Anemia Consult Discharge Plan - Plan Referrals: Beth Allen MD [Partnered Physician] - 02/03/18 3:00 pm Gely Stringer CNP [Primary Care Provider] -
[2018-01-27] MEDS: *HR* Enoxaparin 40 MG/0.4 ML SYRINGE SQ SCH (04:58)
[2018-01-27 07:28] VITALS: BP 121/66
[2018-01-27] MEDS: sulfaSALAzine 500 MG TABLET PO SCH (08:14)
[2018-01-27] MEDS: Finasteride 5 MG TABLET PO SCH (08:15)
[2018-01-27] MEDS: Fenofibrate 54 MG TABLET PO SCH (08:16)
[2018-01-27] MEDS: Aspirin 81 MG TAB.CHEW PO SCH (08:16)
[2018-01-27] MEDS: Furosemide 40 MG TABLET PO SCH (08:16)
[2018-01-27] MEDS: predniSONE 5 MG TABLET PO SCH (08:16)
[2018-01-27] MEDS: Multivit/Ca/Min/Fe/FA 1 TAB TABLET PO SCH (08:16)
[2018-01-27] MEDS: (Tofacitinib Citrate [Xeljanz Xr] 11 MG) PO SCH (08:17)
--- NOTE | 2018-01-27 08:41 | Physician Discharge Referral ---
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 For more information, call the [place] Tobacco Quit Line at 9-832-GHYVNOW. - Transfer Medications Home Medications: Multivit/Iron/FA/K/Herb No.244 [Alive Women's Energy Mv Tablet] 1 tab PO DAILY 04/29/16 [History] Pravastatin Sodium [Pravachol] 40 mg PO HS 04/29/16 [History] Allopurinol [Zyloprim 300 MG] 300 mg PO DAILY 11/03/17 [History] Carvedilol 12.5 mg PO BID 11/03/17 [History] Fenofibrate Nanocrystallized [Tricor] 145 mg PO DAILY 11/03/17 [History] Finasteride [Proscar] 5 mg PO DAILY 11/03/17 [History] [place]-3/Dha/Epa/Fish Oil [Fish Oil 1,000 mg Softgel] 1 tab PO DAILY 11/03/17 [ History] Omeprazole [PriLOSEC] 40 mg PO DAILY 11/03/17 [History] Tamsulosin [Flomax] 0.4 mg PO DAILY 11/03/17 [History] Tofacitinib Citrate [Xeljanz Xr] 11 mg PO DAILY 11/03/17 [History] predniSONE [PredniSONE] 5 mg PO DAILY 11/03/17 [History] sulfaSALAzine [Sulfasalazine] 500 mg PO BID 11/03/17 [History] Aspirin 81 mg PO DAILY tab.chew 01/26/18 [Rx] Ferrous Sulfate 325 mg PO TIDWM tablet 01/26/18 [Rx] Furosemide [Lasix] 40 mg PO DAILY tablet 01/26/18 [Rx] Allergies/Adverse Reactions: 3 Allergy/AdvReac Type Severity Reaction Status Date / Time No Known Allergies Allergy Verified 11/03/17 06:49 Certification: Further, I certify that my clinical findings support that this patient is homebound (i.e. absences from home require considerable and taxing effort and are for medical reasons or [facility] or infrequently or short duration when for other reasons) because: Homebound Reason: Patient requires assistance of a person or device to safely leave home (needs a walker after right hip replacement), Post-surgery restriction and or conditions limit ability to leave home (due to hip replacement) Attestation: My signature below is to certify that this patient is under my care and that I, or nurse practitioner, or a physician's assistant site manager working with me, has a face-to -face encounter with this patient.
== END 2018-01-27 11:35 | disposition home health service (06) | DRG 560 ==
LOC: INPGRE 12:08
PROVIDERS: ADMIT Family Medicine; ATTEND Family Medicine

== ENCOUNTER 2018-10-12 14:09 | Inpatient (IN) ==
[2018-10-13] MEDS ORDERED: Mag Hydrox/Al Hydrox/Simeth 30 ML UDC PO PRN (13:27)
[2018-10-13] MEDS ORDERED: Acetaminophen 325 MG TABLET PO PRN (13:27)
[2018-10-13] MEDS ORDERED: Ondansetron ODT 4 MG TAB.RAPDIS SL PRN (13:29)
--- NOTE | 2018-10-13 13:30 | Internal Med History&Physical ---
Addendum entered and electronically signed by Roger Green MD 10/13/18 14:23: I have personally performed a face to face evaluation on this patient. I have r eviewed and agree with the care plan. History and Exam by me shows: Patient is a 73-year-old white male status post left total knee replacement. He has done relatively well, postoperatively. Surgery was 10/10/2017. This was performed by Dr. Alvarado at [facility]. He denies complications. However, he has a feeling of diminished strength, especially since his surgery. Of note, he had foot drop prior but failed to get an AFO as prescribed. Apparently, his is picking up with the AFO on bringing it here, today. History and physical reviewed at length with patient. Outside and previous electronic records reviewed. Patient has no complaint of chest discomfort, dyspnea, orthopnea, breathing problems, palpitations, nausea or vomiting, constipation or diarrhea, other sheryl nges in bowel habits, heartburn, difficulty with urination, kidney problems or kidney stones, fevers chills or sweats, rash or itching, seizures, headache or lightheadedness, heat or cold intolerance, blood problems or anemia, or other new complaints, except as mentioned above. Review of systems is otherwise negative. Examination: (Except as mentioned above): General: In no apparent distress, alert and oriented 3. Head: Atraumatic and normocephalic. Eyes: Extraocular muscles are intact, pupils equal round and reactive to light and accommodation. Sclerae anicteric. Ears: External ears are normal to inspection and hearing is grossly normal. Nose: Patent without lesion noted. Mouth: No intraoral lesions seen. He is edentulous. Neck: Supple with trachea midline. There is no thyromegaly or adenopathy and carotids are 2+ without bruit heard. Respiratory: No use of accessory muscles. Lungs are clear throughout. Normal airflow. Cardiovascular: Regular rate and rhythm without murmur appreciated. Abdomen: Bowel sounds are normal. No hepatosplenomegaly masses or tenderness. Obese and therefore difficult to palpate deeply. Extremities: No cyanosis clubbing or edema. Neurological: A and O 3. Cranial nerves II through XII are intact. No focal deficits and no abnormal movements or postures. Skin: Warm and non-diaphoretic with no lesions noted. Breasts, pelvic and rectal: Not examined. When necessary medications ordered in addition to previous medication. Will use a Lovenox for DVT prophylaxis. Therapies for mobilization. Footdrop complicates. Original Note: Date of Encounter: 10/13/18 Time of Encounter: 13:27 Assessment and Plan (1) Status post total left knee replacement Current visit: Yes Status: Acute Patient has had a left total knee replacement an [facility] was transferred to this facility for further rehabilitation due to bilateral lower extremity weakness patient appears relaxed and states that the pain to his left knee surgical site is currently tolerable with present medications. Left knee has a midline surgical incision that appears healthy and intact. Noted a large amount of ecchymosis surrounding surgical area to left knee which is slightly swollen. No limitation to range of motion noted to left knee. Therapy evaluation with recommendations are pending. Patient states that due to his generalized weakness he has not ambulated since surgery. Patient does also have an issue with foot drop to his right leg which is being addressed per therapy and a brace is being brought in the morning for him to use during ambulation. 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 Patient with a history of coronary artery disease status includes a bypass surgery in the past. Patient currently denies any chest discomforts or palpitations. Vital signs stable. We will continue with current medications Qualifiers: Associated angina: without angina Qualified Code(s): I25.811 - Atherosclerosis of [place] coronary artery of transplanted heart without angina pectoris (3) CHF (congestive heart failure) Current visit: Yes Status: Acute No acute issues. Patient's lungs are clear throughout all sheld[place]. Patient currently denies any orthopnea or dyspnea on exertion. We will obtain daily weights. We will continue with current medications and monitor closely. Qualifiers: Heart failure type: diastolic Heart failure chronicity: chronic Qualified Code(s): I50.32 - Chronic diastolic (congestive) heart failure (4) GERD (gastroesophageal reflux disease) Current visit: Yes Status: Acute No acute issues. Patient relates no difficulties with reflux. Patient currently on PPI and will continue with current medications. Qualifiers: Esophagitis presence: esophagitis presence not specified Qualified Code(s): K21.9 - Gastro-esophageal reflux disease without esophagitis (5) Gout Current visit: Yes Status: Chronic No acute issues. Patient denies any current discomforts related to gout symptoms. Patient remains on prednisone and allopurinol. Will continue with his current medications. Qualifiers: Gout site: unspecified site Gout etiology: unspecified cause Chronicity: chronic Presence of tophus: without tophus Qualified Code(s): M1A.9XX0 - Chronic gout, unspecified, without tophus (tophi) (6) HTN (hypertension) Current visit: Yes Status: Chronic No acute issues. Patient's vital signs have remained stable. We will continue on current medications. Qualifiers: Hypertension type: essential hypertension Qualified Code(s): I10 - Essential (primary) hypertension Internal Medicine - H&P: HPI Chief complaint: left total knee replacement Admitted From: Hospital to Hospital Transfer Plans for Post Hospital Care: Home History of present illness: Mr. Guzmán is a 73 year old male, who was transferred to this facility from an [facility] where he had a left total knee replacement on 10/10/18. Patient's recovery during his left total knee replacement was uneventful and patient was transferred to this facility for further rehabilitation due to generalized weakness. Patient states that he was able to ambulate prior to his surgery, but did experience weakness and unsteady gait due to weakness to his right leg to include a right foot drop. Patient has had a previous right hip replacement and states that he has had foot drop since that time. Patient states that since he has had this left total knee replacement, the additional weakness to his left leg has made it difficult for him to ambulate. Patient states that his pain to his left knee has been fairly well-controlled with current medications. Patient denies any other discomforts or shortness of breath. Patient's left knee has a midline incision appears healthy and intact, but noted moderate edema to left knee with a large amount of ecchymosis surrounding surgical incision. Past Med Surg Social Fam HX - Past Medical History Medical history: arthritis, CHF, coronary artery disease, hyperlipidemia, myocardial infarction, valvular heart disease, other Additional medical history: gout, tremors, [place] CAD, gerd, BPH Psychiatric history: no psych history - Past Surgical History Surgical History: non-contributory, angioplasty/stent, coronary bypass (CABG), orthopedic, other, pacemaker/AICD, AICD Additional surgical history: back stimulator, back surgery - Social History Smoking Status: Never smoker Smokeless Tobacco Status: No Alcohol use: rarely Drug use: none - Family History Father Living Status: Hx Family Cardiac Disorders: Yes Hx Family Cancer: Yes Mother Living Status: Hx Family Cancer: Yes Internal Medicine - H&P: Meds Multivit/Iron/FA/K/Herb No.244 [Alive [employer]'s [employer] Mv Tablet] 1 tab PO DAILY 04/29/16 [History] Pravastatin Sodium [Pravachol] 40 mg PO HS 04/29/16 [History] Allopurinol [Zyloprim 300 MG] 300 mg PO DAILY 11/03/17 [History] Carvedilol 12.5 mg PO BID 11/03/17 [History] Fenofibrate Nanocrystallized [Tricor] 145 mg PO DAILY 11/03/17 [History] Finasteride [Proscar] 5 mg PO DAILY 11/03/17 [History] [place]-3/Dha/Epa/Fish Oil [Fish Oil 1,000 mg Softgel] 1 tab PO DAILY 11/03/17 [History] Omeprazole [PriLOSEC] 40 mg PO DAILY 11/03/17 [History] Tamsulosin [Flomax] 0.4 mg PO DAILY 11/03/17 [History] Tofacitinib Citrate [Xeljanz Xr] 11 mg PO DAILY 11/03/17 [History] predniSONE [PredniSONE] 5 mg PO DAILY 11/03/17 [History] sulfaSALAzine [Sulfasalazine] 500 mg PO BID 11/03/17 [History] Aspirin 81 mg PO DAILY tab.chew 01/26/18 [Rx] Ferrous Sulfate 325 mg PO TIDWM tablet 01/26/18 [Rx] Furosemide [Lasix] 40 mg PO DAILY tablet 01/26/18 [Rx] Allergy/AdvReac Type Severity Reaction Status Date / Time No Known Allergies Allergy Verified 11/03/17 06:49 All Systems PM: A 10-system review of systems was performed and is negative for pertinent findings except as documented above in the HPI. - Constitutional Constitutional: as per HPI, no chills, no fever(s), no night sweats - EENT Eyes: as per HPI, no change in vision, no discharge, no pain, no photophobia Ears: as per HPI, no ear discharge, no ear pain, no tinnitus Nose, mouth and throat: as per HPI, no dysphagia, no nasal discharge, no neck pain, no sore throat - Breasts Breasts: as per HPI - Cardiovascular Cardiovascular ROS IM: as per HPI, no chest pain, no diaphoresis, no dyspnea, no lightheadedness, no palpitations, no syncope - Respiratory Respiratory: as per HPI, no cough, no dyspnea, no wheezing, no excessive phlegm production - Gastrointestinal Gastrointestinal: as per HPI, no abdominal pain, no diarrhea, no hematemesis, no hematochezia, no melena, no nausea, no vomiting - Genitourinary Genitourinary ROS male: as per HPI - Musculoskeletal Musculoskeletal ROS IM: as per HPI, muscle weakness, no numbness, no tingling - Integumentary Integumentary IM: as per HPI, no rash, no unusual bruising - Neurological Neurological ROS: as per HPI, no confusion, no convulsions, no focal weakness, no numbness, no tingling, no tremor(s) - Endocrine Endocrine IM: as per HPI - Hematologic/Lymphatic Hematologic/Lymphatic: no easy bruising - Constitutional Vitals: Temp Pulse Resp BP Pulse Ox 98.8 F 79 14 111/70 95 10/13/18 12:51 10/13/18 12:51 10/13/18 12:51 10/13/18 12:51 10/13/18 12:51 General appearance: Present: A&O X 3, pleasant - Head Head exam: Present: atraumatic, normocephalic - Eye Eye exam: Present: PERRL, conjuntiva pink, sclera anicteric Pupils: Present: PERRL - Neck Neck exam general surgery: Present: supple, trachea midline. Absent: lymphadenopathy - Respiratory Respiratory exam: Present: CTAB. Absent: accessory muscle use, rales, rhonchi, wheezes - Cardiovascular Cardiovascular exam: Present: RRR, +S1, +S2. Absent: diastolic murmur, gallop, rubs, systolic murmur - GI/Abdominal GI/Abdominal exam: Present: normal bowel sounds, soft, no peritoneal signs. Absent: distended, tenderness - Extremities Exam Extremities exam: Present: warm, radial pulses palpable and symmetrical. Absent: calf tenderness, cyanotic, pedal edema Additional comments: Patient's left knee has midline incision that appears healthy and intact. Noted slight swelling to left knee with a large amount of ecchymosis surrounding the incision and entire knee. - Neurological Exam Neurological exam: Present: CN II-XII intact, oriented X3, no focal deficits. Absent: pronater drift, facial droop, speech deficit Additional comments: Patient has 5/5 muscle strength in all extremities, except for his right DF/PF which is 3/5 MS - Skin Skin exam: Present: dry, intact
[2018-10-13] MEDS ORDERED: *HR* HYDROcodone/Acet 7.5/325 mg TABLET PO PRN (14:13)
[2018-10-13] MEDS: Aspirin Enteric Coated 325 MG Tablet PO SCH (21:15)
[2018-10-13] MEDS: sulfaSALAzine 500 MG TABLET PO SCH (21:16)
[2018-10-13] MEDS: DHA PO SCH (21:22)
[2018-10-13] MEDS: FISH OIL PO SCH (21:22)
[2018-10-13] MEDS: EPA PO SCH (21:22)
[2018-10-14] MEDS: *HR* HYDROcodone/Acet 5/325 mg TABLET PO PRN ×4 (00:39→14:34)
[2018-10-14 05:07] LABS: Basophils % 0.2 %; Eosinophils # 0.1 K/mcL (0.0-0.6); Hematocrit 26.4 % (37.5-50.1); Immature Granulocytes % 0.4 % (0-4); Lymphocytes # 1.2 K/mcL (0.6-4.6); Mean Corpuscular HGB Conc 34.1 g/dL (31.6-35.5); Mean Corpuscular Hemoglobin 35.7 pg (28.0-33.3); Mean Corpuscular Volume 104.8 fL (83.0-100.0); Mean Platelet Volume 9.7 fL (9.4-12.4); Monocytes # 0.8 K/mcL (0.0-1.3); Monocytes % 15.4 %; Platelet Count 152 K/mcL (140-400); Red Blood Count 2.52 M/mcL (4.19-5.50)
[2018-10-14 05:12] LABS: INR 1.3; Prothrombin Time 14.1 Seconds (9.4-12.1)
[2018-10-14 05:14] LABS: Activated Partial Thrombo Time 28.9 Seconds (26.0-36.0)
[2018-10-14] MEDS: Levothyroxine 25 MCG TABLET PO SCH (05:15)
[2018-10-14] MEDS: *HR* Enoxaparin 40 MG/0.4 ML SYRINGE SQ SCH (05:15)
[2018-10-14 05:23] LABS: Alanine Aminotransferase 45 Units/L (7-52); Albumin 3.2 g/dL (3.5-5.7); Albumin/Globulin Ratio 1.1 (1.1-2.2); Alkaline Phosphatase 45 Units/L (34-104); Aspartate Amino Transferase 78 Units/L (13-39); BUN/Creatinine Ratio 28 (6-26); Bilirubin,Total 0.7 mg/dL (0.3-1.0); Blood Urea Nitrogen 25 mg/dL (8-23); Calcium 8.4 mg/dL (8.6-10.3); Carbon Dioxide 26 mEq/L (23-29); Chloride 107 mEq/L (98-107); Globulin 2.9 g/dL (2.4-3.5); Glucose 119 mg/dL (70-105); Magnesium 1.8 mg/dL (1.6-2.6); Osmolality,Calculated 292 (280-300); Potassium 3.7 mEq/L (3.5-5.1); Sodium 138 mEq/L (136-145); Total Protein 6.1 g/dL (6.4-8.9); eGFR For Non-African Americans > 60 (> 60)
[2018-10-14] MEDS: Spironolactone 25 MG TABLET PO SCH (08:27)
[2018-10-14] MEDS: Multivit/Ca/Min/Fe/FA 1 TAB TABLET PO SCH (08:27)
[2018-10-14] MEDS: Fenofibrate 54 MG TABLET PO SCH (08:27)
[2018-10-14] MEDS: Loratadine 10 MG TABLET PO SCH (08:27)
[2018-10-14] MEDS: sulfaSALAzine 500 MG TABLET PO SCH ×2 (08:28→21:27)
[2018-10-14] MEDS: Furosemide 40 MG TABLET PO SCH (08:28)
[2018-10-14] MEDS: predniSONE 5 MG TABLET PO SCH (08:28)
[2018-10-14] MEDS: EPA PO SCH ×2 (08:29→21:34)
[2018-10-14] MEDS: FISH OIL PO SCH ×2 (08:29→21:34)
[2018-10-14] MEDS: DHA PO SCH ×2 (08:29→21:34)
[2018-10-14] MEDS: Fluticasone Propionate Nasal 50 MCG/SPRAY BOTTLE NS SCH (08:31)
[2018-10-14] MEDS: Mirabegron [Myrbetriq] 25 MG PO SCH (08:31)
[2018-10-14] MEDS ORDERED: Aspirin Enteric Coated 325 MG Tablet PO SCH (10:00)
--- NOTE | 2018-10-14 10:55 | Internal Med Progress Note ---
Addendum entered and electronically signed by Lynette Montemayor 10/15/18 11:36: I have personally performed a face to face evaluation on this patient. I have reviewed and agree with the care plan. Original Note: Date of Encounter: 10/14/18 Time of Encounter: 10:53 - Assessment and plan (1) Status post total left knee replacement Current Visit: Yes Status: Acute Assessment and plan: Continue PT and OT. Pain controlled with [place]. Follow up with ortho as sche duled. Lovenox for DVT prophylaxis. (2) HTN (hypertension) Current Visit: Yes Status: Chronic Assessment and plan: Controlled with current medication. Monitor blood pressure. 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 Denies chest pain. Continue current medication. Qualifiers: Associated angina: without angina Qualified Code(s): I25.811 - Atherosclerosis of [place] coronary artery of transplanted heart without angina pectoris (4) Gout Current Visit: Yes Status: Chronic Assessment and plan: Denies pain. Continue prednisone and allopurinol. Qualifiers: Gout site: unspecified site Gout etiology: unspecified cause Chronicity: chronic Presence of tophus: without tophus Qualified Code(s): M1A.9XX0 - Chronic gout, unspecified, without tophus (tophi) (5) CHF (congestive heart failure) Current Visit: Yes Status: Acute Assessment and plan: Stable. Continue current medication. Monitor for decompensation. Monitor daily weights. Qualifiers: Heart failure type: diastolic Heart failure chronicity: chronic Qualified Code(s): I50.32 - Chronic diastolic (congestive) heart failure - Time Spent With Patient less than 15 minutes - Subjective Interval history: pt participating well with therapy. states pain is controlled with norco to left knee. bowels moved yesterday. maintaining appetite and hydration. denies fever, chills, NVD. Has right foot drop from right hip replacement surgery 1 year ago. to bring in AFO that was prescribed. - Constitutional Vitals: Temp Pulse Resp BP Pulse Ox 97.8 F 69 15 136/77 96 10/14/18 04:30 10/14/18 04:30 10/14/18 04:30 10/14/18 04:30 10/14/18 04:30 General appearance: Present: cooperative, A&O X 3, pleasant, no acute distress, answers questions appropriately - Head Head exam: Present: atraumatic, normocephalic - Eye Eye exam: Present: PERRL, conjuntiva pink, sclera anicteric Pupils: Present: PERRL - Neck Neck exam general surgery: Present: supple, trachea midline. Absent: lymphadenopathy - Respiratory Respiratory exam: Present: CTAB. Absent: accessory muscle use, rales, rhonchi, wheezes - Cardiovascular Cardiovascular exam: Present: RRR, +S1, +S2. Absent: diastolic murmur, gallop, rubs, systolic murmur - GI/Abdominal GI/Abdominal exam: Present: normal bowel sounds, soft, no peritoneal signs. Absent: distended, tenderness - Extremities Exam Extremities exam: Present: warm, radial pulses palpable and symmetrical. Absent: calf tenderness, cyanotic, pedal edema Additional comments: Right foot drop - [place] Comments: Left knee dressing dry and intact. Moderate amount of ecchymosis surrounding with moderate amount of edema surrounding - Neurological Exam Neurological exam: Present: CN II-XII intact, oriented X3, no focal deficits. Absent: pronater drift, facial droop, speech deficit - Skin Skin exam: Present: dry, intact Internal Medicine: Result - Labs CBC & Chem 7: 10/14/18 05:01 10/14/18 05:01 Labs: Short CBC 10/14/18 Range/Units 05:01 WBC 5.0 (4.3-11.1) K/mcL Hgb 9.0 L (12.9-16.9) g/dL Hct 26.4 L (37.5-50.1) % Plt Count 152 (140-400) K/mcL Neutrophils # 3.0 (1.6-8.9) K/mcL BMP 10/14/18 05:01 Sodium 138 Potassium 3.7 Chloride 107 Carbon Dioxide 26 BUN 25 H Creatinine 0.89 Glucose 119 H Calcium 8.4 L Liver Function 10/14/18 Range/Units 05:01 Total Bilirubin 0.7 (0.3-1.0) mg/dL AST 78 H (13-39) Units/L ALT 45 (7-52) Units/L Alkaline Phosphatase 45 (34-104) Units/L Albumin 3.2 L (3.5-5.7) g/dL - ABG Interpretation ABG results: PT/INR, D-dimer PT 14.1 Seconds (9.4-12.1) H 10/14/18 05:01 - VTE Reasons for not Prescribing Prophylaxis: Treatment not Indicated - Low risk for VTE Documentation of Mechanical Device: Graduated compression elastic hosiery Consult Discharge Plan - Plan Referrals: Pedro Barr, S[employer]IOR [employer]CHNICIAN [Primary Care Provider] -
[2018-10-14] MEDS: Aspirin Enteric Coated 325 MG Tablet PO SCH (10:57)
[2018-10-15 05:54] LABS: Hematocrit 27.4 % (37.5-50.1); Hemoglobin 9.1 g/dL (12.9-16.9); Mean Corpuscular HGB Conc 33.2 g/dL (31.6-35.5); Mean Corpuscular Hemoglobin 34.6 pg (28.0-33.3); Mean Corpuscular Volume 104.2 fL (83.0-100.0); Mean Platelet Volume 9.7 fL (9.4-12.4); Platelet Count 165 K/mcL (140-400); Red Blood Count 2.63 M/mcL (4.19-5.50); Red Cell Distribution Width 14.1 % (11.5-14.5)
[2018-10-15 06:09] LABS: BUN/Creatinine Ratio 32 (6-26); Blood Urea Nitrogen 30 mg/dL (8-23); Calcium 8.7 mg/dL (8.6-10.3); Carbon Dioxide 28 mEq/L (23-29); Chloride 105 mEq/L (98-107); Glucose 108 mg/dL (70-105); Osmolality,Calculated 291 (280-300); Potassium 3.8 mEq/L (3.5-5.1); Sodium 137 mEq/L (136-145); eGFR For Non-African Americans > 60 (> 60)
[2018-10-15] MEDS: *HR* Enoxaparin 40 MG/0.4 ML SYRINGE SQ SCH (06:27)
[2018-10-15] MEDS: *HR* HYDROcodone/Acet 5/325 mg TABLET PO PRN ×3 (06:28→15:11)
[2018-10-15] MEDS: Levothyroxine 25 MCG TABLET PO SCH (06:28)
[2018-10-15] MEDS: Fenofibrate 54 MG TABLET PO SCH (09:29)
[2018-10-15] MEDS: sulfaSALAzine 500 MG TABLET PO SCH ×2 (09:29→20:11)
[2018-10-15] MEDS: predniSONE 5 MG TABLET PO SCH (09:30)
[2018-10-15] MEDS: Spironolactone 25 MG TABLET PO SCH (09:30)
[2018-10-15] MEDS: Furosemide 40 MG TABLET PO SCH (09:30)
[2018-10-15] MEDS: Loratadine 10 MG TABLET PO SCH (09:30)
[2018-10-15] MEDS: Multivit/Ca/Min/Fe/FA 1 TAB TABLET PO SCH (09:30)
[2018-10-15] MEDS: EPA PO SCH ×2 (09:31→20:11)
[2018-10-15] MEDS: DHA PO SCH ×2 (09:31→20:11)
[2018-10-15] MEDS: FISH OIL PO SCH ×2 (09:31→20:11)
[2018-10-15] MEDS: Mirabegron [Myrbetriq] 25 MG PO SCH (09:31)
[2018-10-15] MEDS: Fluticasone Propionate Nasal 50 MCG/SPRAY BOTTLE NS SCH (09:32)
--- NOTE | 2018-10-15 11:39 | Internal Med Progress Note ---
Date of Encounter: 10/15/18 Time of Encounter: 11:20 - Subjective Interval history: - Assessment and plan (1) Status post total left knee replacement Current Visit: Yes Status: Acute Assessment and plan: Continue PT and OT. Pain controlled with [place]. Follow up with ortho as scheduled. Lovenox for DVT prophylaxis. (2) HTN (hypertension) Current Visit: Yes Status: Chronic Assessment and plan: Controlled with current medication. Monitor blood pressure. 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 Denies chest pain. Continue current medication. 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 Continue prednisone and allopurinol. Qualifiers: Gout site: unspecified site Gout etiology: unspecified cause Chronicity: chronic Presence of tophus: without tophus Qualified Code(s): M1A.9XX0 - Chronic gout, unspecified, without tophus (tophi) (5) CHF (congestive heart failure) Current Visit: Yes Status: Acute Assessment and plan: Stable. Continue current medication. Monitor for decompensation. Monitor daily weights. Qualifiers: Heart failure type: diastolic Heart failure chronicity: chronic Qualified Code(s): I50.32 - Chronic diastolic (congestive) heart failure - Time Spent With Patient less than 15 minutes - Subjective Interval history: pt participating well with therapy. states pain is controlled to left knee. bowels ok maintaining appetite and hydration. denies fever, chills, NVD. Has right foot drop from right hip replacement surgery 1 year ago. - EXAM General appearance: Present: cooperative, A&O X 3, pleasant, no acute distress, answers questions appropriately - Head Head exam: Present: atraumatic, normocephalic - Eye Eye exam: Present: PERRL, conjuntiva pink, sclera anicteric Pupils: Present: PERRL - Neck Neck exam general surgery: Present: supple, trachea midline. Absent: lymphadenopathy - Respiratory Respiratory exam: Present: CTAB. Absent: accessory muscle use, rales, rhonchi, wheezes - Cardiovascular Cardiovascular exam: Present: RRR, +S1, +S2. Absent: diastolic murmur, gallop, rubs, systolic murmur - GI/Abdominal GI/Abdominal exam: Present: normal bowel sounds, soft, no peritoneal signs. Absent: distended, tenderness - Extremities Exam Extremities exam: Present: warm, radial pulses palpable and symmetrical. Absent: calf tenderness, cyanotic, pedal edema Additional comments: Right foot drop - [place] Comments: Left knee dressing dry and intact. Moderate amount of ecchymosis surrounding with moderate amount of edema surrounding - Neurological Exam Neurological exam: Present: CN II-XII intact, oriented X3, no focal deficits. Absent: pronater drift, facial droop, speech deficit - Constitutional Vitals: Temp Pulse Resp BP Pulse Ox 98.6 F 73 16 124/69 95 10/15/18 07:55 10/15/18 07:55 10/15/18 07:55 10/15/18 07:55 10/15/18 07:55 Internal Medicine: Result - Labs CBC & Chem 7: 10/15/18 05:30 10/15/18 05:30 Labs: Short CBC 10/15/18 Range/Units 05:30 WBC 4.3 (4.3-11.1) K/mcL Hgb 9.1 L (12.9-16.9) g/dL Hct 27.4 L (37.5-50.1) % Plt Count 165 (140-400) K/mcL BMP 10/15/18 05:30 Sodium 137 Potassium 3.8 Chloride 105 Carbon Dioxide 28 BUN 30 H Creatinine 0.94 Glucose 108 H Calcium 8.7 - ABG Interpretation ABG results: PT/INR, D-dimer PT 14.1 Seconds (9.4-12.1) H 10/14/18 05:01 - VTE Reasons for not Prescribing Prophylaxis: Treatment not Indicated - Low risk for VTE Documentation of Mechanical Device: Graduated compression elastic hosiery Consult Discharge Plan - Plan Referrals: Pedro Barr, DRAP[employer] HAND [Primary Care Provider] -
[2018-10-15 13:39] LABS: % Iron Saturation 25 % (20-55); Iron 64 mcg/dL (65-175); Transferrin 183 mg/dL (203-362)
[2018-10-16] MEDS: *HR* HYDROcodone/Acet 5/325 mg TABLET PO PRN (04:57)
[2018-10-16] MEDS: Levothyroxine 25 MCG TABLET PO SCH (04:57)
[2018-10-16] MEDS: *HR* Enoxaparin 40 MG/0.4 ML SYRINGE SQ SCH (04:57)
[2018-10-16] MEDS: Multivit/Ca/Min/Fe/FA 1 TAB TABLET PO SCH (08:09)
[2018-10-16] MEDS: Furosemide 40 MG TABLET PO SCH (08:09)
[2018-10-16] MEDS: Fluticasone Propionate Nasal 50 MCG/SPRAY BOTTLE NS SCH (08:10)
[2018-10-16] MEDS: Fenofibrate 54 MG TABLET PO SCH (08:10)
[2018-10-16] MEDS: predniSONE 5 MG TABLET PO SCH (08:10)
[2018-10-16] MEDS: Spironolactone 25 MG TABLET PO SCH (08:10)
[2018-10-16] MEDS: Loratadine 10 MG TABLET PO SCH (08:10)
[2018-10-16] MEDS: sulfaSALAzine 500 MG TABLET PO SCH ×2 (08:10→19:53)
[2018-10-16] MEDS: FISH OIL PO SCH ×2 (08:11→19:53)
[2018-10-16] MEDS: EPA PO SCH ×2 (08:11→19:53)
[2018-10-16] MEDS: Mirabegron [Myrbetriq] 25 MG PO SCH (08:11)
[2018-10-16] MEDS: DHA PO SCH ×2 (08:11→19:53)
--- NOTE | 2018-10-16 14:26 | Internal Med Progress Note ---
Date of Encounter: 10/16/18 Time of Encounter: 02:50 - Subjective Interval history: - Assessment and plan (1) Status post total left knee replacement Current Visit: Yes Status: Acute Assessment and plan: Continue PT and OT. Pain controlled with [place]. Follow up with ortho as scheduled. Lovenox for DVT prophylaxis. (2) HTN (hypertension) Current Visit: Yes Status: Chronic Assessment and plan: Controlled with current medication. Monitor blood pressure. 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 Denies chest pain. Continue current medication. 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 Continue prednisone and allopurinol. Qualifiers: Gout site: unspecified site Gout etiology: unspecified cause Chronicity: chronic Presence of tophus: without tophus Qualified Code(s): M1A.9XX0 - Chronic gout, unspecified, without tophus (tophi) (5) CHF (congestive heart failure) Current Visit: Yes Status: Acute Assessment and plan: Stable. Continue current medication. Monitor for decompensation. Monitor daily weights. Qualifiers: Heart failure type: diastolic Heart failure chronicity: chronic Qualified Code(s): I50.32 - Chronic diastolic (congestive) heart failure - Time Spent With Patient less than 15 minutes - Subjective Interval history: pt participating well with therapy. states pain is controlled to left knee. bowels ok maintaining appetite and hydration. denies fever, chills, NVD. Has right foot drop from right hip replacement surgery 1 year ago. - EXAM General appearance: Present: cooperative, A&O X 3, pleasant, no acute distress, answers questions appropriately - Head Head exam: Present: atraumatic, normocephalic - Eye Eye exam: Present: PERRL, conjuntiva pink, sclera anicteric Pupils: Present: PERRL - Neck Neck exam general surgery: Present: supple, trachea midline. Absent: lymphadenopathy - Respiratory Respiratory exam: Present: CTAB. Absent: accessory muscle use, rales, rhonchi, wheezes - Cardiovascular Cardiovascular exam: Present: RRR, +S1, +S2. Absent: diastolic murmur, gallop, rubs, systolic murmur - GI/Abdominal GI/Abdominal exam: Present: normal bowel sounds, soft, no peritoneal signs. Absent: distended, tenderness - Extremities Exam Extremities exam: Present: warm, radial pulses palpable and symmetrical. Absent: calf tenderness, cyanotic, pedal edema Additional comments: Right foot drop - [place] Comments: Left knee dressing dry and intact. Moderate amount of ecchymosis surrounding with moderate amount of edema surrounding - Neurological Exam Neurological exam: Present: CN II-XII intact, oriented X3, no focal deficits. Absent: pronater drift, facial droop, speech deficit - Constitutional Vitals: Temp Pulse Resp BP Pulse Ox 98.1 F 71 16 137/74 96 10/16/18 06:00 10/16/18 06:00 10/16/18 06:00 10/16/18 06:00 10/16/18 06:00 General appearance: Present: cooperative, A&O X 3, pleasant, no acute distress, answers questions appropriately Internal Medicine: Result - Labs CBC & Chem 7: 10/15/18 05:30 10/15/18 05:30 - ABG Interpretation ABG results: PT/INR, D-dimer PT 14.1 Seconds (9.4-12.1) H 10/14/18 05:01 - VTE Reasons for not Prescribing Prophylaxis: Treatment not Indicated - Low risk for VTE Documentation of Mechanical Device: Graduated compression elastic hosiery Consult Discharge Plan - Plan Referrals: Pedro Barr, [employer] [Primary Care Provider] -
[2018-10-17] MEDS: Levothyroxine 25 MCG TABLET PO SCH (05:40)
[2018-10-17] MEDS: *HR* Enoxaparin 40 MG/0.4 ML SYRINGE SQ SCH (05:40)
[2018-10-17] MEDS: *HR* HYDROcodone/Acet 5/325 mg TABLET PO PRN ×2 (05:40→10:04)
[2018-10-17 07:00] LABS: Basophils % 0.6 %; Eosinophils # 0.1 K/mcL (0.0-0.6); Eosinophils % 1.6 %; Hematocrit 30.3 % (37.5-50.1); Hemoglobin 10.1 g/dL (12.9-16.9); Lymphocytes # 1.1 K/mcL (0.6-4.6); Lymphocytes % 17.3 %; Mean Corpuscular HGB Conc 33.3 g/dL (31.6-35.5); Mean Corpuscular Hemoglobin 34.7 pg (28.0-33.3); Mean Corpuscular Volume 104.1 fL (83.0-100.0); Mean Platelet Volume 9.5 fL (9.4-12.4); Monocytes # 1.1 K/mcL (0.0-1.3); Monocytes % 17.2 %; Neutrophils # 3.5 K/mcL (1.6-8.9); Nucleated Red Blood Cells 1.8 /100 WBC (0); Platelet Count 259 K/mcL (140-400); Red Blood Count 2.91 M/mcL (4.19-5.50); Red Cell Distribution Width 14.5 % (11.5-14.5); Segmented Neutrophils % 57.3 %
[2018-10-17 07:06] LABS: INR 1.3; Prothrombin Time 14.6 Seconds (9.4-12.1)
[2018-10-17 07:12] LABS: BUN/Creatinine Ratio 33 (6-26); Blood Urea Nitrogen 30 mg/dL (8-23); Calcium 8.7 mg/dL (8.6-10.3); Carbon Dioxide 28 mEq/L (23-29); Chloride 101 mEq/L (98-107); Glucose 114 mg/dL (70-105); Osmolality,Calculated 287 (280-300); Potassium 3.8 mEq/L (3.5-5.1); Sodium 135 mEq/L (136-145); eGFR For Non-African Americans > 60 (> 60)
[2018-10-17] MEDS: Spironolactone 25 MG TABLET PO SCH (07:53)
[2018-10-17] MEDS: Fenofibrate 54 MG TABLET PO SCH (07:53)
[2018-10-17] MEDS: predniSONE 5 MG TABLET PO SCH (07:53)
[2018-10-17] MEDS: Loratadine 10 MG TABLET PO SCH (07:54)
[2018-10-17] MEDS: Multivit/Ca/Min/Fe/FA 1 TAB TABLET PO SCH (07:54)
[2018-10-17] MEDS: Fluticasone Propionate Nasal 50 MCG/SPRAY BOTTLE NS SCH (07:55)
[2018-10-17] MEDS: Furosemide 40 MG TABLET PO SCH (07:55)
[2018-10-17] MEDS: FISH OIL PO SCH ×2 (07:56→20:26)
[2018-10-17] MEDS: Mirabegron [Myrbetriq] 25 MG PO SCH (07:56)
[2018-10-17] MEDS: sulfaSALAzine 500 MG TABLET PO SCH ×2 (07:56→20:25)
[2018-10-17] MEDS: DHA PO SCH ×2 (07:56→20:26)
[2018-10-17] MEDS: EPA PO SCH ×2 (07:56→20:26)
[2018-10-17 08:57] LABS: Platelet Estimate Normal (Normal); Stomatocytes 2+ (Not Present)
--- NOTE | 2018-10-17 10:57 | Internal Med Progress Note ---
Addendum entered and electronically signed by Roger Green MD 10/17/18 11:45: I have personally performed a face to face evaluation on this patient. I have r eviewed and agree with the care plan. History and Exam by me shows: Patient is doing well and feels like he is making good progress; he wants to go home. He denies problems with bowels or bladder. Pain is very much under control. Discussed care with other providers and/or nursing. Patient has no complaint of chest discomfort, dyspnea, orthopnea, palpitations, nausea or vomiting, constipation or diarrhea, other changes in bowel habits, difficulty with urination, rash or itching, or other new complaints, except as mentioned above. Review of systems is otherwise negative. Examination: (Except as mentioned above): General: In no apparent distress. Alert and oriented 3. Nondiaphoretic. Head: Atraumatic and normocephalic. Respiratory: No use of accessory muscles. Lungs are clear throughout. Normal airflow. Cardiovascular: Regular rate and rhythm without murmur appreciated. Abdomen: Bowel sounds are normal. No hepatosplenomegaly mass or tenderness appreciated. Obese and therefore difficult to palpate deeply. Extremities: No cyanosis clubbing or edema. Skin: Warm and non-diaphoretic with no new lesions noted. Original Note: Date of Encounter: 10/17/18 Time of Encounter: 10:55 - Assessment and plan (1) Status post total left knee replacement Current Visit: Yes Status: Acute Assessment and plan: No acute issues. Left knee surgical incision appears healthy and intact. Patient has been mobilizing with assistance while using a wheeled walker and progressing well. Patient requesting to increase his therapy and hopes to get home sooner. States that his pain is minimal controlled with current medications. 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 Patient denies any chest discomforts or palpitations. Denies any dyspnea. We will continue with current medications. Qualifiers: Associated angina: without angina Qualified Code(s): I25.811 - Atherosclerosis of [place] coronary artery of transplanted heart without angina pectoris (3) CHF (congestive heart failure) Current Visit: Yes Status: Chronic Assessment and plan: No acute issues. Lungs are clear. Patient denies any dyspnea during therapy. No productive cough. No complaints of chest discomforts or palpitations. We will continue with current plan of care. Qualifiers: Heart failure type: diastolic Heart failure chronicity: chronic Qualified Code(s): I50.32 - Chronic diastolic (congestive) heart failure (4) GERD (gastroesophageal reflux disease) Current Visit: Yes Status: Chronic Assessment and plan: Patient denies any reflux or any related issues. We will continue with current medications Qualifiers: Esophagitis presence: esophagitis presence not specified Qualified Code(s): K21.9 - Gastro-esophageal reflux disease without esophagitis (5) Gout Current Visit: Yes Status: Chronic Assessment and plan: No acute issues. Patient denies any discomforts. We will continue on current medications Qualifiers: Gout site: unspecified site Gout etiology: unspecified cause Chronicity: chronic Presence of tophus: without tophus Qualified Code(s): M1A.9XX0 - Chronic gout, unspecified, without tophus (tophi) (6) HTN (hypertension) Current Visit: Yes Status: Chronic Assessment and plan: Vital signs have remained stable. We will continue with current medications. Qualifiers: Hypertension type: essential hypertension Qualified Code(s): I10 - Essential (primary) hypertension - Time Spent With Patient less than 15 minutes - Subjective Interval history: Patient appears relaxed and currently denies any discomforts or shortness of breath. Patient states that he feels his strength has been improving in the short time he has been here at rehabilitation and currently is requesting to increase his physical therapy. Patient denies any productive cough. Denies any constipation. - Constitutional Vitals: Temp Pulse Resp BP Pulse Ox 98.3 F 71 16 123/79 95 10/17/18 07:27 10/17/18 07:27 10/17/18 07:27 10/17/18 07:27 10/17/18 07:27 General appearance: Present: cooperative, A&O X 3, pleasant, no acute distress, answers questions appropriately - Head Head exam: Present: atraumatic, normocephalic - Eye Eye exam: Present: PERRL, conjuntiva pink, sclera anicteric Pupils: Present: PERRL - Neck Neck exam general surgery: Present: supple, trachea midline. Absent: l ymphadenopathy - Respiratory Respiratory exam: Present: CTAB. Absent: accessory muscle use, rales, rhonchi, wheezes - Cardiovascular Cardiovascular exam: Present: RRR, +S1, +S2. Absent: diastolic murmur, gallop, rubs, systolic murmur - GI/Abdominal GI/Abdominal exam: Present: normal bowel sounds, soft, no peritoneal signs. Absent: distended, tenderness - Extremities Exam Extremities exam: Present: joint swelling, normal capillary refill, warm, radial pulses palpable and symmetrical. Absent: calf tenderness, cyanotic, pedal edema Additional comments: Left knee with midline incision that appears healthy and intact. Slight edema noted to left knee - Neurological Exam Neurological exam: Present: CN II-XII intact, oriented X3, no focal deficits. Absent: pronater drift, facial droop, speech deficit - Skin Skin exam: Present: dry, intact Internal Medicine: Result - Labs CBC & Chem 7: 10/17/18 06:47 10/17/18 06:47 Labs: Short CBC 10/17/18 Range/Units 06:47 WBC 6.2 (4.3-11.1) K/mcL Hgb 10.1 L (12.9-16.9) g/dL Hct 30.3 L (37.5-50.1) % Plt Count 259 D (140-400) K/mcL Neutrophils # 3.5 (1.6-8.9) K/mcL BMP 10/17/18 06:47 Sodium 135 L Potassium 3.8 Chloride 101 Carbon Dioxide 28 BUN 30 H Creatinine 0.91 Glucose 114 H Calcium 8.7 - ABG Interpretation ABG results: PT/INR, D-dimer PT 14.6 Seconds (9.4-12.1) H 10/17/18 06:47 - VTE Reasons for not Prescribing Prophylaxis: Treatment not Indicated - Low risk for VTE Documentation of Mechanical Device: Graduated compression elastic hosiery Consult Discharge Plan - Plan Referrals: Pedro Barr, [employer] [Primary Care Provider] -
[2018-10-18] MEDS: *HR* Enoxaparin 40 MG/0.4 ML SYRINGE SQ SCH (05:26)
[2018-10-18] MEDS: Levothyroxine 25 MCG TABLET PO SCH (05:26)
[2018-10-18] MEDS: *HR* HYDROcodone/Acet 5/325 mg TABLET PO PRN ×3 (05:27→19:36)
[2018-10-18] MEDS: Fenofibrate 54 MG TABLET PO SCH (08:20)
[2018-10-18] MEDS: sulfaSALAzine 500 MG TABLET PO SCH ×2 (08:20→19:33)
[2018-10-18] MEDS: Loratadine 10 MG TABLET PO SCH (08:20)
[2018-10-18] MEDS: Furosemide 40 MG TABLET PO SCH (08:20)
[2018-10-18] MEDS: Multivit/Ca/Min/Fe/FA 1 TAB TABLET PO SCH (08:20)
[2018-10-18] MEDS: DHA PO SCH ×2 (08:21→19:36)
[2018-10-18] MEDS: Mirabegron [Myrbetriq] 25 MG PO SCH (08:21)
[2018-10-18] MEDS: Fluticasone Propionate Nasal 50 MCG/SPRAY BOTTLE NS SCH (08:21)
[2018-10-18] MEDS: EPA PO SCH ×2 (08:21→19:36)
[2018-10-18] MEDS: Spironolactone 25 MG TABLET PO SCH (08:21)
[2018-10-18] MEDS: FISH OIL PO SCH ×2 (08:21→19:36)
[2018-10-18] MEDS: predniSONE 5 MG TABLET PO SCH (08:21)
--- NOTE | 2018-10-18 12:15 | Internal Med Progress Note ---
Addendum entered and electronically signed by Roger Green MD 10/18/18 12:22: I have personally performed a face to face evaluation on this patient. I have r eviewed and agree with the care plan. History and Exam by me shows: Patient is without complaint and feels like he is doing well. Is looking forward to going home, tomorrow. He states bowels and bladder are functioning well. Discussed care with other providers and/or nursing. Patient has no complaint of chest discomfort, dyspnea, orthopnea, palpitations, nausea or vomiting, constipation or diarrhea, other changes in bowel habits, difficulty with urination, rash or itching, or other new complaints, except as mentioned above. Review of systems is otherwise negative. Examination: (Except as mentioned above): General: In no apparent distress. Alert and oriented 3. Nondiaphoretic. Head: Atraumatic and normocephalic. Respiratory: No use of accessory muscles. Lungs are clear throughout. Normal airflow. Cardiovascular: Regular rate and rhythm without murmur appreciated. Abdomen: Bowel sounds are normal. No hepatosplenomegaly mass or tenderness appreciated. Obese and therefore difficult to palpate deeply. Patient is examined upright in chair and this also limits exam. Extremities: No cyanosis clubbing or edema. Skin: Warm and non-diaphoretic with no new lesions noted. Original Note: Date of Encounter: 10/18/18 Time of Encounter: 12:13 - Assessment and plan (1) Status post total left knee replacement Current Visit: Yes Status: Acute Assessment and plan: Continue PT and OT. Pain controlled with [place]. Follow up with ortho as scheduled. Lovenox for DVT prophylaxis. (2) HTN (hypertension) Current Visit: Yes Status: Chronic Assessment and plan: Controlled with current medication. Monitor blood pressure. 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 Denies chest pain. Continue current medication. 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 Continue prednisone and allopurinol. Qualifiers: Gout site: unspecified site Gout etiology: unspecified cause Chronicity: chronic Presence of tophus: without tophus Qualified Code(s): M1A.9XX0 - Chronic gout, unspecified, without tophus (tophi) (5) CHF (congestive heart failure) Current Visit: Yes Status: Chronic Assessment and plan: Stable. Continue current medication. Monitor for decompensation. Monitor daily weights. Qualifiers: Heart failure type: diastolic Heart failure chronicity: chronic Qualified Code(s): I50.32 - Chronic diastolic (congestive) heart failure - Time Spent With Patient less than 15 minutes - Subjective Interval history: pt participating well with therapy. states pain is controlled with norco to left knee. bowels moved this morning. maintaining appetite and hydration. denies fever, chills, NVD. Ambulating with Walker with therapy. - Constitutional Vitals: Temp Pulse Resp BP Pulse Ox 98.3 F 79 16 122/69 94 10/18/18 07:21 10/18/18 07:21 10/18/18 07:21 10/18/18 07:21 10/18/18 07:21 General appearance: Present: cooperative, A&O X 3, pleasant, no acute distress, answers questions appropriately - Head Head exam: Present: atraumatic, normocephalic - Eye Eye exam: Present: PERRL, conjuntiva pink, sclera anicteric Pupils: Present: PERRL - Neck Neck exam general surgery: Present: supple, trachea midline. Absent: lymphadenopathy - Respiratory Respiratory exam: Present: CTAB. Absent: accessory muscle use, rales, rhonchi, wheezes - Cardiovascular Cardiovascular exam: Present: RRR, +S1, +S2. Absent: diastolic murmur, gallop, rubs, systolic murmur - GI/Abdominal GI/Abdominal exam: Present: normal bowel sounds, soft, no peritoneal signs. Absent: distended, tenderness - Extremities Exam Extremities exam: Present: warm, radial pulses palpable and symmetrical. Absent: calf tenderness, cyanotic, pedal edema - Incison Comments: Left knee incision dressing dry and intact. Moderate amount of surrounding redness and bruising. Moderate amount of edema surrounding. - Neurological Exam Neurological exam: Present: CN II-XII intact, oriented X3, no focal deficits. Absent: pronater drift, facial droop, speech deficit - Skin Skin exam: Present: dry, intact Internal Medicine: Result - Labs CBC & Chem 7: 10/17/18 06:47 10/17/18 06:47 - ABG Interpretation ABG results: PT/INR, D-dimer PT 14.6 Seconds (9.4-12.1) H 10/17/18 06:47 - VTE Reasons for not Prescribing Prophylaxis: Treatment not Indicated - Low risk for VTE Documentation of Mechanical Device: Graduated compression elastic hosiery Consult Discharge Plan - Plan Referrals: Pedro Barr, [employer] [Primary Care Provider] -
[2018-10-19] MEDS: *HR* Enoxaparin 40 MG/0.4 ML SYRINGE SQ SCH (06:12)
[2018-10-19] MEDS: Levothyroxine 25 MCG TABLET PO SCH (06:12)
[2018-10-19 07:14] VITALS: BP 145/87
[2018-10-19] MEDS: sulfaSALAzine 500 MG TABLET PO SCH (08:54)
[2018-10-19] MEDS: Spironolactone 25 MG TABLET PO SCH (08:55)
[2018-10-19] MEDS: predniSONE 5 MG TABLET PO SCH (08:55)
[2018-10-19] MEDS: Multivit/Ca/Min/Fe/FA 1 TAB TABLET PO SCH (08:55)
[2018-10-19] MEDS: Loratadine 10 MG TABLET PO SCH (08:55)
[2018-10-19] MEDS: Fenofibrate 54 MG TABLET PO SCH (08:55)
[2018-10-19] MEDS: EPA PO SCH (08:56)
[2018-10-19] MEDS: Furosemide 40 MG TABLET PO SCH (08:56)
[2018-10-19] MEDS: Fluticasone Propionate Nasal 50 MCG/SPRAY BOTTLE NS SCH (08:56)
[2018-10-19] MEDS: DHA PO SCH (08:56)
[2018-10-19] MEDS: FISH OIL PO SCH (08:56)
[2018-10-19] MEDS: Mirabegron [Myrbetriq] 25 MG PO SCH (08:56)
--- NOTE | 2018-10-19 09:34 | Discharge Summary ---
Addendum entered and electronically signed by Roger Green MD 10/19/18 10:40: OF NOTE: Macrocytosis is not addressed as it is uncertain as to whether this p reexisted his admission. This will be deferred to primary care provider. I have personally performed a face to face evaluation on this patient. I have reviewed and agree with the care plan. History and Exam by me shows: Patient without complaint. He is moving bowels using toilet well. He denies pain, at all. He slept well. Discussed care with other providers and/or nursing. Patient has no complaint of chest discomfort, dyspnea, orthopnea, palpitations, nausea or vomiting, constipation or diarrhea, other changes in bowel habits, difficulty with urination, rash or itching, or other new complaints, except as mentioned above. Review of systems is otherwise negative. Examination: (Except as mentioned above): General: In no apparent distress. Alert and oriented 3. Nondiaphoretic. Head: Atraumatic and normocephalic. Respiratory: No use of accessory muscles. Lungs are clear throughout. Normal airflow. Cardiovascular: Regular rate and rhythm without murmur appreciated. Abdomen: Bowel sounds are normal. No hepatosplenomegaly mass or tenderness appreciated. Obese and therefore difficult to palpate deeply. Patient is examined upright in chair and this also limits exam. Extremities: No cyanosis clubbing or edema. Skin: Warm and non-diaphoretic with no new lesions noted. I answered all of his questions as well as any questions from his [id number]. Original Note: Date of Encounter: 10/19/18 Time of Encounter: 09:32 - Discharge Diagnosis (1) Status post total left knee replacement Priority: Primary Status: Acute Comments: Improving. Pain controlled with current medication. Follow up with ortho as scheduled on . Continue PT. (2) HTN (hypertension) Priority: Secondary Status: Chronic Comments: Controlled with current medication. Monitor blood pressure. Follow up with PCP within one week. 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 Continue current medication. Follow up with PCP in one week. 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 Denies pain. Qualifiers: Gout site: unspecified site Gout etiology: unspecified cause Chronicity: chronic Presence of tophus: without tophus Qualified Code(s): M1A.9XX0 - Chronic gout, unspecified, without tophus (tophi) (5) CHF (congestive heart failure) Priority: Secondary Status: Chronic Comments: Stable. Continue current medication. Monitor for decompensation. Follow up with PCP as scheduled. Qualifiers: Heart failure type: diastolic Heart failure chronicity: chronic Qualified Code(s): I50.32 - Chronic diastolic (congestive) heart failure Hospital course: Mr. Guzmán is a 73 year old male discharging to home status post left total knee replacement. Has appointment scheduled for follow-up with surgeon on 10/24/18. Pain controlled with current medication. Ambulating with Walker. Continue outpatient PT. Discharge discussed with: patient, nurse, social work - Time Spent with Patient Total time spent providing and/or coordinating discharge services: Time spent: Less than 30 minutes - Discharge Medications Prescriptions: No Action Pravastatin Sodium [Pravachol] 40 mg PO HS Multivit/Iron/FA/K/Herb No.244 [[employer] Mv Tablet] 1 tab PO DAILY Allopurinol [Zyloprim 300 MG] 200 mg PO BID Carvedilol 12.5 mg PO BID Fenofibrate Nanocrystallized [Tricor] 145 mg PO DAILY Omeprazole [PriLOSEC] 40 mg PO DAILY predniSONE [PredniSONE] 5 mg PO DAILY sulfaSALAzine [Sulfasalazine] 1,000 mg PO BID Tofacitinib Citrate [Xeljanz Xr] 11 mg PO DAILY Ferrous Sulfate 325 mg PO TIDWM tablet Furosemide [Lasix] 40 mg PO DAILY tablet Spironolactone [Aldactone] 25 mg PO DAILY Mirabegron [Myrbetriq] 25 mg PO DAILY Memantine [Namenda] 10 mg PO BID Levothyroxine [Synthroid] 25 mcg PO DAILY Fish Oil/Dha/Epa [Fish Oil 1,200 mg Fish Oil] 1 each PO BID Cyclobenzaprine HCl 5 mg PO Q8HR Cetirizine HCl [24Hour Allergy] 10 mg PO DAILY Hydrocodone/Acetaminophen [[place] 7.5-325 Tablet] 1 each PO Q6HR PRN PRN Reason: Pain Aspirin [Ecotrin] 325 mg PO BID Home Medications: Multivit/Iron/FA/K/Herb No.244 [[employer] Mv Tablet] 1 tab PO DAILY 04/29/16 [History] Pravastatin Sodium [Pravachol] 40 mg PO HS 04/29/16 [History] Allopurinol [Zyloprim 300 MG] 200 mg PO BID 11/03/17 [History] Carvedilol 12.5 mg PO BID 11/03/17 [History] Fenofibrate Nanocrystallized [Tricor] 145 mg PO DAILY 11/03/17 [History] Omeprazole [PriLOSEC] 40 mg PO DAILY 11/03/17 [History] Tofacitinib Citrate [Xeljanz Xr] 11 mg PO DAILY 11/03/17 [History] predniSONE [PredniSONE] 5 mg PO DAILY 11/03/17 [History] sulfaSALAzine [Sulfasalazine] 1,000 mg PO BID 11/03/17 [History] Ferrous Sulfate 325 mg PO TIDWM tablet 01/26/18 [Rx] Furosemide [Lasix] 40 mg PO DAILY tablet 01/26/18 [Rx] Aspirin [Ecotrin] 325 mg PO BID 10/13/18 [History] Cetirizine HCl [24Hour Allergy] 10 mg PO DAILY 10/13/18 [History] Cyclobenzaprine HCl 5 mg PO Q8HR 10/13/18 [History] Fish Oil/Dha/Epa [Fish Oil 1,200 mg Fish Oil] 1 each PO BID 10/13/18 [History] Hydrocodone/Acetaminophen [[place] 7.5-325 Tablet] 1 each PO Q6HR PRN 10/13/18 [History] Levothyroxine [Synthroid] 25 mcg PO DAILY 10/13/18 [History] Memantine [Namenda] 10 mg PO BID 10/13/18 [History] Mirabegron [Myrbetriq] 25 mg PO DAILY 10/13/18 [History] Spironolactone [Aldactone] 25 mg PO DAILY 10/13/18 [History] Acetaminophen [Tylenol] 650 mg PO Q6HR PRN tablet 10/19/18 [Rx] Calcium Carbonate [Tums] 1,000 mg PO QID PRN tab.chew 10/19/18 [Rx] Fluticasone Propionate Nasal [Flonase] 50 mcg NS DAILY bottle 10/19/18 [Rx] Allergies/Adverse Reactions: Allergy/AdvReac Type Severity Reaction Status Date / Time No Known Allergies Allergy Verified 11/03/17 06:49 Date of admission: 10/13/18 12:20 Primary care physician: Pedro Barr CNP Consults: 10/13/18 14:01 Consult to Occupational Therapy [CONS] Routine Comment: Evaluate, develop and implement POC Reason for Consult: left total knee replacement Does patient have active BEDREST order?: No Is patient medically & hemodynamically stable?: Yes Patient assessed for mobility or mobilized this visit?: No Consult to Physical Medicine/Rehab [CONS] Routine Reason for Consult: left total knee replacement Time Notified: 14:00 Call Completed: No Consult to Physical Therapy [CONS] Routine Comment: Evaluate, develop and implement POC Reason for Consult: left total knee replacement Does patient have active BEDREST order?: No Is patient medically & hemodynamically stable?: Yes Patient assessed for mobility or mobilized this visit?: No 10/13/18 14:12 Consult to Recreational Therapy [CONS] Routine Comment: Evaluate, develop and implement POC Discharging clinician: Roger Green Anticipated date of discharge: 10/19/18 - Constitutional Vitals: Temp Pulse Resp BP Pulse Ox 98.3 F 75 15 145/87 95 10/19/18 07:13 10/19/18 07:13 10/19/18 07:13 10/19/18 07:13 10/19/18 07:13 General appearance: Present: cooperative, A&O X 3, pleasant, no acute distress, answers questions appropriately - Head Head exam: Present: atraumatic, normocephalic - Eye Eye exam: Present: PERRL, conjuntiva pink, sclera anicteric Pupils: Present: PERRL - Neck Neck exam general surgery: Present: supple, trachea midline. Absent: lymphadenopathy - Respiratory Respiratory exam: Present: CTAB. Absent: accessory muscle use, rales, rhonchi, wheezes - Cardiovascular Cardiovascular exam: Present: RRR, +S1, +S2. Absent: diastolic murmur, gallop, rubs, systolic murmur - GI/Abdominal GI/Abdominal exam: Present: normal bowel sounds, soft, no peritoneal signs. Absent: distended, tenderness - Extremities Exam Extremities exam: Present: warm, radial pulses palpable and symmetrical. Absent: calf tenderness, cyanotic, pedal edema - Incison Comments: Left knee incision dressing dry and intact. Moderate amount of surrounding edema. Slight redness and ecchymosis. - Neurological Exam Neurological exam: Present: CN II-XII intact, oriented X3, no focal deficits. Absent: pronater drift, facial droop, speech deficit - Skin Skin exam: Present: dry, intact - Patient Status Disposition: Home, Self-Care Condition: Good Functional capacity at discharge: uses cane/walker Overall status at discharge: patient is progressing back to baseline - Discharge Instructions Follow Up With: Pedro Barr [employer] [Primary Care Provider] - - Diet and Activity Activity: as per physical therapy, increase activity as tolerated Diet: advance to your usual diet - VTE Reasons for not Prescribing Prophylaxis: Treatment not Indicated - Low risk for VTE Documentation of Mechanical Device: Graduated compression elastic hosiery
== END 2018-10-19 10:20 | disposition home or self-care (01) | DRG 560 ==
LOC: INPGRE 10-13 12:20